=== PATIENT | male | born 1945 | race Caucasian/White ===

== ENCOUNTER 2019-10-19 04:19 | Inpatient (IN) ==
[2019-10-19] MEDS ORDERED: MORPHINE IV ONE (04:43)
[2019-10-19] MEDS ORDERED: FLOMAX PO ONE (04:43)
[2019-10-19] MEDS ORDERED: NS 1,000 ML IV ONE (04:43)
[2019-10-19] MEDS ORDERED: ZOFRAN IV ONE (04:43)
--- NOTE | 2019-10-19 05:06 | PROVIDER DOCUMENTATION ---
HPI-Male Problem - General Chief Complaint: Flank Pain Stated Complaint: RIGHT FLANK PAIN Time Seen by Provider: 10/19/19 04:41 Source: patient, family Allergies/Adverse Reactions: Patient Allergies Allergy/AdvReac Type Severity Reaction Status Date / Time No Known Allergies Allergy Verified 02/14/19 11:58 Home Medications: Home Medication List Medication Instructions Recorded Confirmed Last Taken Type Hydrocortisone 20 mg PO QAM 09/15/14 02/23/19 02/22/19 History Hydrocortisone 10 mg PO QPM 04/12/15 02/23/19 02/22/19 History Levothyroxine [Synthroid] 50 microgm PO DAILY 04/12/15 02/23/19 02/22/19 History Acalabrutinib [Calquence] 100 mg PO BID 01/26/19 02/23/19 02/22/19 History Atorvastatin Calcium [Lipitor] 80 mg PO DAILY 01/26/19 02/23/19 02/22/19 History Calcium Citrate [Calcitrate] 1 dose PO BID 01/26/19 02/23/19 02/22/19 History Dicyclomine [Bentyl] 10 mg PO TID 01/26/19 02/23/19 02/22/19 History Diphenoxylate/Atropine [Lomotil] 2.5 mg PO PRN PRN 01/26/19 02/23/19 02/22/19 History Dutasteride/Tamsulosin HCl [[place] 1 dose PO DAILY 01/26/19 02/23/19 02/22/19 History 0.5-0.4 mg Capsule] Fludrocortisone [Florinef] 0.1 mg PO DAILY 01/26/19 02/23/19 02/22/19 History Levetiracetam [Keppra] 250 mg PO BID 01/26/19 02/23/19 02/23/19 05:00 History Potassium Chloride 20 meq PO TID 01/26/19 02/23/19 02/22/19 History Ranitidine HCl [Zantac] 150 mg PO BID PRN 01/26/19 02/23/19 02/22/19 History Valacyclovir HCl [Valtrex] 500 mg PO DAILY 01/26/19 02/23/19 02/22/19 History Amoxicillin 875 mg PO BID 05/02/23/19 02/22/19 History Apixaban [Eliquis] 5 mg PO BID #0 02/23/19 02/23/19 02/20/19 Rx - History of Present Illness-Male Nature of Presenting Problem: Sudden onset of right flank pain with nausea for 2 hours, awoke him from sleep. No history of prior kidney stones, but he has had renal cyst in the past. Notes some increased urinary frequency and a little pain on urination this morning. No hematuria, despite being on Eliquis. Patient also has history of mantle cell lymphoma on targeted daily oral chemotherapy and weekly IV IgG inf[facility] [place] Dr. Garza is his PCP. States he knows his renal cyst is about 15cm. Location of Complaint: reports: right flank Radiation: reports: other (right low back) Quality of Pain: reports: sharp, stabbing Severity in ED: reports: severe Onset/Duration: reports: abrupt, 1-3 hours ago Timing: reports: still present, constant, changing over time Context/Activities at Onset: reports: sleep Urinary Symptoms: reports: dysuria, frequency, urgency Last urinated? (time): 04:30 Sexual intercourse history: reports: Greater Than 2 Months Ago, Single Partner Associated Symptoms: reports: none Associated Symptoms: reports: back/neck pain, diaphoresis, nausea, vomiting Similar Symptoms Previously?: No Recently seen or treated by another doctor?: No Review of Systems - Adult - REVIEW OF SYSTEMS - ADULT Constitutional: reports: no symptoms reported Eyes: reports: no symptoms reported Ears, Nose, Mouth & Throat: reports: no symptoms reported Cardiovascular: reports: no symptoms reported Respiratory: reports: no symptoms reported Gastrointestinal: reports: see HPI, abdominal pain, nausea, vomiting. denies: hematemesis, constipation, poor appetite Genitourinary: reports: see HPI, dysuria, frequency, urgency. denies: frequent UTI's, hematuria, hesitency Musculoskeletal: reports: see HPI, back pain. denies: bone pain, frequent leg cramps, joint swelling, muscle weakness, neck pain Integumentary: reports: no symptoms reported Neurological: reports: no symptoms reported Psychiatric: reports: no symptoms reported Endocrine: reports: no symptoms reported Hematologic/Lymphatic: reports: no symptoms reported Allergic/Immunologic: reports: no symptoms reported All Other Systems: Reviewed and Negative Past History - Adult - PAST MEDICAL HISTORY-ADULT Review of Records: reports: Old Records Reviewed, Nursing Assessment Review, Medications Reviewed, Social history reviewed & non-contributory. Major Childhood Illnesses: reports: denies history Cardiovascular: reports: blood clots (PE) Respiratory: reports: lung disease, pneumonia Gastrointestinal: reports: GERD Obstetrical/Gynecological: reports: denies history Genitourinary: reports: denies history Musculoskeletal: reports: denies history Neurological: reports: Seizures/Epilepsy Psychiatric: reports: denies history Endocrine/Immune: reports: other (Mclennan's, lymphoma) Other Conditions: reports: other cancer (lymphoma) - PRIOR SURGERIES/PROCEDURES Surgical/Procedure History: reports: recent surgery (colonoscopy) - IMMUNIZATION STATUS Childhood Immunizations: UTD Flu Vaccine: UTD - FAMILY HISTORY Family History: reviewed, not pertinent - SOCIAL HISTORY Smoking: non-smoker Substance Use: none/never Alcohol Use Frequency: rarely Living Situation: family Physical Exam-General - PHYSICAL EXAM-ADULT Initial Vital Signs Reviewed: Yes (VSSAF, tachypneic, otherwise normal) - CONSTITUTIONAL General Appearance: alert, moderate distress (in pain, wretching) - EYES Eyes: PERRL/EOMI, pink conjunctivae - HEAD, EARS, NOSE, MOUTH & THROAT HENMT: normocephalic/atraumatic, moist mucous membranes, normal ENT inspection, pharynx normal - NECK Neck: non-tender, full range of motion, supple, normal inspection. negative: meningismus - RESPIRATORY Respiratory: chest non-tender, lungs clear, normal breath sounds, no pleuratic chest pain, no respiratory distress, no accessory muscle use, increased rate, other (there is a port in his left upper chest) - CARDIOVASCULAR Cardiovascular: normal peripheral pulses, regular rate, rhythm, no edema, no gallop, no JVD, no murmur - GASTROINTESTINAL (ABDOMEN) Abdominal Exam: soft, no organomegaly, guarding, tenderness (right flank). negative: rebound, McBurney's point tenderness - LYMPHATIC Lymphatic: no adenopathy - MUSCULOSKELETAL Back Exam: no vertebral tenderness, CVA tenderness (right side, severe), decreased range of motion Extremity: normal range of motion, non-tender, normal gait, no pedal edema, normal capillary refill - SKIN Integumentary: normal color, normal turgor, warm/dry - NEUROLOGIC Neurologic: brewery pumper II-XII nml as tested, grossly normal, no motor/sensory deficits - PSYCHIATRIC Psych/Mental Status: normal mood/affect, normal thought content, normal thought process, oriented x 3 Progress - PLAN OF CARE/RESULTS Progress/Plan/Lab Results: Vital Signs - 8 hr 10/19/19 04:35 Temperature 98.1 F Pulse Rate 80 Respiratory Rate 28 H Blood Pressure 135/75 O2 Sat by Pulse Oximetry 96 Laboratory Results - last 24 hr 10/19/19 10/19/19 10/19/19 05:12 05:12 05:12 WBC 10.82 H RBC 4.21 L Hgb 13.6 L Hct 42.1 MCV 100.0 H MCH 32.3 H MCHC 32.3 L RDW Std Deviation 15.5 H Plt Count 266 MPV 10.3 Immature Gran % (Auto) 0.3 Neut % (Auto) 66.8 Lymph % (Auto) 16.1 L [place] % (Auto) 16.1 H Eos % (Auto) 0.6 Baso % (Auto) 0.1 Immature Gran # (Auto) 0.03 Neut # (Auto) 7.23 H Lymph # (Auto) 1.74 [place] # (Auto) 1.74 H Eos # (Auto) 0.07 Baso # (Auto) 0.01 PT INR PTT (Actin FS) Sodium 144 Potassium 4.3 Chloride 112 H Carbon Dioxide 20 L Anion Gap 12 BUN 25 H Creatinine 1.9 H Estimated GFR/1.73 m2 35 BUN/Creatinine Ratio 13 Glucose 115 H Calculated Osmolality 292 Calcium 9.1 Total Bilirubin 0.23 AST 22 ALT 31 Alkaline Phosphatase 107 Total Protein 5.5 L Albumin 3.2 L Globulin 2.3 Albumin/Globulin Ratio 1.4 Lipase 48 Plasma Lactate Cortisol 17.9 Urine Source Urine Color Urine Turbidity Urine pH Ur Specific [place] Urine Protein Ur Glucose (Stick) Ur Ketones (Stick) Urine Blood Urine Nitrite Urine Bilirubin Urobilinogen Dipstick Urine Leukocytes Urine WBC (Auto) Urine RBC (Auto) U Epithel Cells (Auto) Urine Bacteria (Auto) 10/19/19 10/19/19 10/19/19 05:12 06:00 06:25 WBC RBC Hgb Hct MCV MCH MCHC RDW Std Deviation Plt Count MPV Immature Gran % (Auto) Neut % (Auto) Lymph % (Auto) [place] % (Auto) Eos % (Auto) Baso % (Auto) Immature Gran # (Auto) Neut # (Auto) Lymph # (Auto) [place] # (Auto) Eos # (Auto) Baso # (Auto) PT Cancelled 14.8 INR Cancelled 1.14 PTT (Actin FS) Cancelled 48.1 H Sodium Potassium Chloride Carbon Dioxide Anion Gap BUN Creatinine Estimated GFR/1.73 m2 BUN/Creatinine Ratio Glucose Calculated Osmolality Calcium Total Bilirubin AST ALT Alkaline Phosphatase Total Protein Albumin Globulin Albumin/Globulin Ratio Lipase Plasma Lactate Cortisol Urine Source CLEAN CATCH Urine Color YELLOW Urine Turbidity CLEAR Urine pH 5.5 Ur Specific [place] 1.015 Urine Protein TRACE A Ur Glucose (Stick) NEGATIVE Ur Ketones (Stick) NEGATIVE Urine Blood MODERATE A Urine Nitrite NEGATIVE Urine Bilirubin NEGATIVE Urobilinogen Dipstick NORMAL Urine Leukocytes NEGATIVE Urine WBC (Auto) <10 Urine RBC (Auto) 20-40 A U Epithel Cells (Auto) <10 Urine Bacteria (Auto) NEGATIVE 10/19/19 06:43 WBC RBC Hgb Hct MCV MCH MCHC RDW Std Deviation Plt Count MPV Immature Gran % (Auto) Neut % (Auto) Lymph % (Auto) [place] % (Auto) Eos % (Auto) Baso % (Auto) Immature Gran # (Auto) Neut # (Auto) Lymph # (Auto) [place] # (Auto) Eos # (Auto) Baso # (Auto) PT INR PTT (Actin FS) Sodium Potassium Chloride Carbon Dioxide Anion Gap BUN Creatinine Estimated GFR/1.73 m2 BUN/Creatinine Ratio Glucose Calculated Osmolality Calcium Total Bilirubin AST ALT Alkaline Phosphatase Total Protein Albumin Globulin Albumin/Globulin Ratio Lipase Plasma Lactate 1.0 Cortisol Urine Source Urine Color Urine Turbidity Urine pH Ur Specific [place] Urine Protein Ur Glucose (Stick) Ur Ketones (Stick) Urine Blood Urine Nitrite Urine Bilirubin Urobilinogen Dipstick Urine Leukocytes Urine WBC (Auto) Urine RBC (Auto) U Epithel Cells (Auto) Urine Bacteria (Auto) Orders Category Date Time Status CT RENAL STONE SEARCH [CT] Stat Exams 10/19/19 04:47 Completed BLOOD CULTURE [BLDCUL] Stat Lab 10/19/19 07:24 Results CBC WITH ELECTRONIC DIFF [HEME] Stat Lab 10/19/19 05:12 Completed COMPREHENSIVE METABOLIC PANEL [CHEM] Stat Lab 10/19/19 05:12 Completed CORTISOL Stat Lab 10/19/19 05:12 Completed LACTATE, PLASMA [CHEM] Stat Lab 10/19/19 06:43 Completed LIPASE [CHEM] Stat Lab 10/19/19 05:12 Completed PROTIME WITH INR [COAG] Routine Lab 10/19/19 06:00 Completed PTT [COAG] Routine Lab 10/19/19 06:00 Completed URINALYSIS W/POSS RFLX CULT [URINALYSIS] Stat Lab 10/19/19 06:25 Completed 0.9% Sodium Chloride Inj [Ns] 1,000 ml Med 10/19/19 04:43 Discontinued IV 999 mls/hr CefTRIAXONE [Rocephin] 1 gm Med 10/19/19 05:50 Discontinued 0.9% Sodium Chloride Inj [Ns] 50 ml IV NOW Hydrocortisone Sod Succinate [Solu-Cortef] Med 10/19/19 05:11 Discontinued 100 mg IV NOW ONE Hydromorphone [Dilaudid] Med 10/19/19 05:22 Discontinued 0.5 mg IV NOW ONE Hydromorphone [Dilaudid] Med 10/19/19 05:51 Discontinued 0.5 mg IV NOW ONE Hydromorphone [Dilaudid] Med 10/19/19 06:38 Discontinued 0.5 mg IV NOW ONE Morphine Med 10/19/19 04:43 Discontinued 4 mg IV NOW ONE Ondansetron [Zofran] Med 10/19/19 04:43 Discontinued 4 mg IV NOW ONE Tamsulosin [Flomax] Med 10/19/19 04:43 Discontinued 0.4 mg PO NOW ONE Result Diagrams: 10/19/19 05:12 10/19/19 05:12 - REASSESSMENT Reassessment #1 Time Reassessed: 05:28 Status: improving (Minimal relief with IVF and morphine/zofran. Will try dilaudid. Also gave hydrocortisone 100mg stress dose IV d/t Mclennan's and chr onic) - CT/MRI 1 CT Study: Renal Stone Impression: Abnormal, See EMR Report (Signed CT RENAL STONE SEARCH - 10/05 INDICATION: right flank pain COMPARISON: 11/30/2018 FINDINGS: There is severe chronic bronchitis in the lung bases with mucus impaction of several segmental bronchi in the lower lobes bilaterally. There is also some mild adjacent infiltrate. This is overall somewhat improved since the prior exam. Heart size is normal with no pericardial effusion. There is a small obstructing stone in the right proximal ureter measuring about 3 mm. There is mild to moderate right hydronephrosis. There is a larger stone in the lower pole of the right kidney measuring about 8.6 mm. There is a grossly stable, huge right renal cyst laterally. This fills the right side of the abdomen. This measures 20 x 15 cm and deviates the right kidney passed the midline. The left kidney is normal. There is a linear calcium density at the posterior left side of the urinary bladder which is stable from prior. This may represent a calcified nodule within the urinary bladder wall itself. Stable enlarged prostate gland with a nodular projection into the urinary bladder. No bowel obstruction or inflammation. Mild constipation. No adenopathy. Mild diverticulosis of the sigmoid colon. There are moderate degenerative changes of the spine. No acute or suspicious bony lesion. IMPRESSION: 1. Small obstructing stone in the proximal right ureter. Mild to moderate hydroureteronephrosis. Right renal stone. 2. Stable huge right renal cyst that appears benign. 3. Stable chronic bronchitis with significant mucus impaction and bibasilar bronchopneumonia. 4. Several findings are also stable from prior. This exam was performed using automated exposure control, adjustment of mA or kV according to patient size, and/or use of iterative reconstruction technique Electronically signed by John Hodges 10/19/2019 6:34 AM 10/19/19 0634 Interpreting Physician: John Hodges MD Dictated Date/Time: 10/19/1925 cc: Arben Whitlock MD; Rishabh Garza MD) - CONSULTS/PCP/HOSPITALIST Notification #1 *Consult/PCP/Hospitalist*: Dr Lawson Time Discussed: 08:00 Consult Disposition: Will see in ED, Admit - CHANGE OF SHIFT REPORT (ED Provider) 1 Report Given and Care Transferred to:: Dr. Lea Time of Transfer: 07:00 Items Pending: Labs (urinalysis), Pain Control, Physician Consult/Arrival (Dr. Garza consult after 0700) Departure - Departure Date of Disposition Decision: 10/19/19 Time of Disposition Decision: 08:01 DIAGNOSIS: Ureterolithiasis, Renal cyst, Hydronephrosis Disposition: ADMITTED INPATIENT 09 Certified Medical Emergency: Emergent Condition: Fair Referrals and Follow-Ups: Rishabh Garza MD [Primary Care Provider] - - Critical Care Note This patient required my direct & personal management of CC.: No Attestation - Physician/ KIM Attestation Patient care was provided by Advanced Practice Provider:: No The physician spent face to face time with patient:: Yes Advanced Practice Provider documentation review:: Supervising physician onsite and consulted in the evaluation and care of this patient. The physician did have a face to face encounter with the patient.
[2019-10-19] MEDS ORDERED: SOLU-CORTEF IV ONE (05:11)
[2019-10-19] MEDS ORDERED: DILAUDID IV ONE ×5 (05:22→15:31)
[2019-10-19 05:26] LABS: BASO# 0.01 X1000 (0.0-0.2); BASO% 0.1 % (0.0-0.8); EOS# 0.07 X1000 (0.0-0.7); EOS% 0.6 % (0.0-10.0); HEMATOCRIT 42.1 % (42.0-52.0); HEMOGLOBIN 13.6 g/dL (14.0-18.0); IMM GRAN# 0.03 X1000 (0.0-0.04); IMM GRAN% 0.3 % (0.0-0.5); LYMPH# 1.74 X1000 (1.2-3.4); LYMPH% 16.1 % (20.5-51.1); MCH 32.3 PG (27-31); MCHC 32.3 g/dL (33-37); MONO# 1.74 X1000 (0.11-0.59); MONO% 16.1 % (1.7-9.3); MPV 10.3 FL (7.4-10.4); NEUT# 7.23 X1000 (1.4-6.5); NEUT% 66.8 % (42.2-75.2); PLT 266 X1000 (130-400); RBC 4.21 XMIL (4.7-6.1); RDW 15.5 % (11.5-14.5); WBC 10.82 X1000 (4.8-10.8)
[2019-10-19 05:39] LABS: ALB/GLOB RATIO 1.4; ALBUMIN 3.2 g/dL (3.5-5.0); CALCIUM 9.1 mg/dL (8.8-10.2); CREATININE 1.9 mg/dL (0.7-1.2); POTASSIUM 4.3 mmol/L (3.5-5.1); TOTAL BILIRUBIN 0.23 mg/dL (0.20-1.00); TOTAL PROTEIN 5.5 g/dL (6.3-8.3)
[2019-10-19] MEDS ORDERED: ROCEPHIN 1 GM in NS 50 ML IV ONE (05:50)
[2019-10-19 06:18] LABS: INR 1.14; PROTIME 14.8 Seconds (11.0-16.0); PTT 48.1 Seconds (22.3-41.8)
[2019-10-19 06:37] LABS: URINE SOURCE CLEAN CATCH
--- NOTE | 2019-10-19 06:37 | Diag Imaging Result Doc PS360 ---
CT RENAL STONE SEARCH - 10/19/2019 INDICATION: right flank pain COMPARISON: 11/30/2018 FINDINGS: There is severe chronic bronchitis in the lung bases with mucus impaction of several segmental bronchi in the lower lobes bilaterally. There is also some mild adjacent infiltrate. This is overall somewhat improved since the prior exam. Heart size is normal with no pericardial effusion. There is a small obstructing stone in the right proximal ureter measuring about 3 mm. There is mild to moderate right hydronephrosis. There is a larger stone in the lower pole of the right kidney measuring about 8.6 mm. There is a grossly stable, huge right renal cyst laterally. This fills the right side of the abdomen. This measures 20 x 15 cm and deviates the right kidney passed the midline. The left kidney is normal. There is a linear calcium density at the posterior left side of the urinary bladder which is stable from prior. This may represent a calcified nodule within the urinary bladder wall itself. Stable enlarged prostate gland with a nodular projection into the urinary bladder. No bowel obstruction or inflammation. Mild constipation. No adenopathy. Mild diverticulosis of the sigmoid colon. There are moderate degenerative changes of the spine. No acute or suspicious bony lesion. IMPRESSION: 1. Small obstructing stone in the proximal right ureter. Mild to moderate hydroureteronephrosis. Right renal stone. 2. Stable huge right renal cyst that appears benign. 3. Stable chronic bronchitis with significant mucus impaction and bibasilar bronchopneumonia. 4. Several findings are also stable from prior. This exam was performed using automated exposure control, adjustment of mA or kV according to patient size, and/or use of iterative reconstruction technique Electronically signed by John Hodges 10/19/2019 6:34 AM
[2019-10-19 06:41] LABS: BILIRUBIN URINE NEGATIVE (NEGATIVE); BLOOD URINE MODERATE (NEGATIVE); COLOR YELLOW; GLUCOSE URINE NEGATIVE (NEGATIVE); KETONE URINE NEGATIVE (NEGATIVE); LEUKOCYTES URINE NEGATIVE (NEGATIVE); NITRITE URINE NEGATIVE (NEGATIVE); PH URINE 5.5; PROTEIN URINE TRACE mg/dL (NEGATIVE); SP GRAVITY URINE 1.015; TURBIDITY URINE CLEAR (CLEAR); UROBILINOGEN URINE NORMAL (NORMAL)
[2019-10-19 06:42] LABS: UR EPITHELIAL CELLS <10 /HPF (<10); URINE BACTERIA NEGATIVE /HPF; URINE RBC 20-40 /HPF (<10); URINE WBC <10 /HPF (<10)
[2019-10-19] MEDS: DILAUDID IV PRN ×3 (10:44→23:24)
[2019-10-19] MEDS ORDERED: SYNTHROID PO ONE (11:06)
[2019-10-19] MEDS ORDERED: ZITHROMAX PO SCH (11:06)
[2019-10-19] MEDS ORDERED: FLOMAX PO SCH (11:06)
[2019-10-19] MEDS ORDERED: ZOFRAN IV PRN (11:06)
[2019-10-19] MEDS ORDERED: LOMOTIL PO PRN (11:06)
[2019-10-19] MEDS ORDERED: TYLENOL PO PRN (11:06)
[2019-10-19] MEDS ORDERED: AVODART PO SCH (11:06)
[2019-10-19] MEDS: VALTREX PO SCH (11:32)
[2019-10-19] MEDS: DOXYCYCLINE PO SCH (11:32)
[2019-10-19] MEDS: NS 1,000 ML IV SCH (11:33)
[2019-10-19] MEDS: SLOW-MAG PO SCH ×2 (11:33→23:17)
[2019-10-19] MEDS: KEPPRA PO SCH ×2 (11:33→23:17)
[2019-10-19] MEDS: ALBUTEROL NEB INH SCH ×2 (11:37→21:20)
[2019-10-19] MEDS: FLOMAX PO SCH (11:54)
[2019-10-19] MEDS: AVODART PO SCH (12:35)
[2019-10-19] MEDS ORDERED: BENTYL PO SCH (13:00)
[2019-10-19] MEDS ORDERED: PEPCID IV ONE (13:54)
[2019-10-19] MEDS ORDERED: REGLAN IV ONE (13:54)
[2019-10-19] MEDS ORDERED: SODIUM CHLORIDE 0.9% INJ ONE (13:54)
--- NOTE | 2019-10-19 13:58 | HISTORY AND PHYSICAL ---
PRIMARY CARE PHYSICIAN: Dr. Rishabh Garza CHIEF COMPLAINT: Intractable right flank pain. HISTORY OF PRESENT ILLNESS: 74-year-old white male with a very complicated past medical history presents for evaluation of above-mentioned symptoms. Current history of present illness began at approximately 2 a.m. At that time, patient awoke with acute onset right flank pain. Unfortunately, the pain progressed. He was noted to have associated nausea, but no vomiting. Because of the progressive symptoms, patient presented to the emergency department at approximately 4:30 a.m. Full evaluation was pursued. CT scan confirmed a proximal right ureteral stone. Laboratory data was significant for a proximal right ureteral stone with associated mild to moderate hydronephrosis. A large cyst was also identified and noted to be stable. Additionally, laboratory data was significant for a slightly elevated white blood cell count of 10.82 and creatinine increased above baseline at 1.9. While in the emergency department, patient required multiple doses of Dilaudid followed by morphine to adequately control his pain. Because of his difficulty with controlling the pain, patient will be admitted to the hospital for full evaluation and management with urologic consultation. Of note, patient denies fevers, chills, shortness of breath, chest discomfort, dysuria, hematuria, or pyuria. His last bowel movement was described as normal yesterday. PAST MEDICAL HISTORY: 1. History of an abnormal skin examination with multiple actinic keratoses. He is followed by Dr. Yarbrough. 2. Adrenal insufficiency-patient was diagnosed status post chemotherapy for mantle cell lymphoma in 1999. He is maintained on hydrocortisone and fludrocortisone therapy. 3. Rankin esophagus. 4. Benign prostatic hypertrophy. 5. History of a C7 aneurysmal bone cyst. 6. Bronchiectasis. 7. Chronic renal insufficiency with creatinine ranging between 1.3 and 1.9. Last creatinine in the office was 1.4. 8. Diverticulosis. 9. History of seizure disorder diagnosed after craniotomy and resection of a large lymphoma in 2009. 10. Reflux disease. 11. Hypertriglyceridemia. 12. Hearing loss. 13. Hyperlipidemia. 14. Hypogammaglobulinemia. 15. Hypothyroidism. 16. Irritable bowel syndrome. 17. History of an acute traumatic right MCL tear in 2013 treated symptomatically. 18. History of stage IV mantle cell lymphoma diagnosed in 1999. He is status post chemotherapy followed by stem cell transplant in [place]. Recurrence was noted in 2009. He is status post neurosurgical intervention by Dr. Lopez followed by chemotherapy, XRT, and repeat stem- cell transplantation. Associated complications have included seizure disorder, DVT/PTE, and hemolytic anemia. 19. Elevated MCV likely secondary to chemotherapeutic intervention. 20. Tobacco use between ages 17 and 72. 21. Obstructive sleep apnea, presumed diagnosis. 22. Osteoarthritis. 23. Overweight. 24. History of a large renal cyst per CT scan in 2004. CURRENT MEDICATIONS: 1. Albuterol nebulizer twice daily. 2. Atorvastatin 80 mg at bedtime. 3. Azithromycin 250 mg 3 times weekly. 4. Bentyl 10 mg 3 times daily. 5. Calcium plus vitamin D, 2 tablets twice daily. 6. Calquence 100 mg twice daily. 7. Centrum Silver 1 tablet daily. 8. Doxycycline 100 mg daily. 9. Eliquis 5 mg twice daily. 10. Fludrocortisone 1 mg at bedtime. 11. Folic acid 1 mg daily. 12. Hydrocortisone 20 mg in the morning and 10 mg at bedtime. 13. Alma 0.5/0.4 daily. 14. Lasix 20 mg daily. 15. Keppra 250 mg twice daily. 16. Lomotil 1 tablet twice daily as needed. 17. Metamucil daily as needed. 18. Mucinex DM twice daily. 19. Pepcid 20 mg twice daily. 20. Potassium chloride 20 mEq 3 times daily. 21. Slow-Mag magnesium twice daily. 22. Valtrex 500 mg daily. 23. Vitamin B12 monthly. ALLERGIES: The patient states he is allergic to no medications. SOCIAL HISTORY: The patient smoked 1 cigar daily for 15 years followed by 1 pipe per day for 10 years. He stopped in January 2017. He has approximately 4 alcoholic drinks per week. He denies illicit drug use. He is a retired radiologist. He enjoys hunting, fishing, and golfing. He exercises intermittently. FAMILY HISTORY: Patient's father passed at age 64 secondary to complications of CLL. The patient's mother passed at age 95 secondary to complications of "old age." She had a history of osteoarthritis and dementia. REVIEW OF SYSTEMS: A 12 point review of systems was performed. Pertinent positives and negatives are noted in history of present illness. PHYSICAL EXAMINATION: VITAL SIGNS: Temperature 98.1 degrees, heart rate 80, respirations 28, blood pressure is 135/75. GENERAL: Well nourished, well developed, no acute distress. HEENT: Normocephalic, atraumatic. Pupils equal, round, react to light. Extraocular muscles intact. Sclerae anicteric. [place] conjunctivae. Oral and nasopharynx clear without exudate. NECK: Supple. No lymphadenopathy. No thyromegaly. No bruits auscultated. CARDIOVASCULAR: Regular rate and rhythm. No significant murmurs, rubs, or gallops. PULMONARY: Rhonchi and wheezing bilaterally. Adequate air movement. ABDOMEN: Soft, nontender, nondistended. Positive bowel sounds. EXTREMITIES: Moves all extremities well. No significant clubbing, cyanosis, or edema. NEUROLOGIC: Cranial nerves 2-12 grossly intact. Motor and sensory grossly intact. PSYCHOLOGIC: Examination is appropriate. LABORATORY DATA: White blood cell count 10.82, hemoglobin 13.6, hematocrit 42.1, platelet count 266,000. PT 14.8, INR is 1.14, PTT is 48.1, sodium 144, potassium 4.3, chloride 112, bicarbonate 20, BUN 25, creatinine 0.9, glucose 115, calcium 9.1, total bilirubin 0.23, total protein 5.5, albumin 3.2, alkaline phosphatase 107, AST 22, ALT 31, lipase 48, plasma lactate 1.0, cortisol 17.9. Urinalysis reveals moderate blood. CT scan suggested a small obstructing stone in the proximal right ureter. Mild to moderate hydronephrosis was identified. A larger renal stone was identified at 8.6 mm. Stable, huge right renal cyst that appears benign. Stable chronic bronchiectasis with significant mucus impaction and bibasilar bronchopneumonia. ASSESSMENT AND PLAN: A 74-year-old white male with a very complicated past medical history presents for evaluation of right flank pain. The patient was diagnosed with symptomatic ureterolithiasis. While the stone is small at 3 mm, patient is having difficulty with pain management. He has required 4 doses of Dilaudid and a dose of morphine to maintain adequate control. Because of this, as well as his complicated past medical history, patient will be admitted to the hospital for full evaluation and management. 1. Admit to [address] [place] [address]. 2. Symptomatic ureterolithiasis and associated nephrolithiasis-I have discussed case with Dr. Ya. We will start patient on IV hydration. We will strain urine. We will continue Alma therapy. We will continue pain management. Depending on his progress through the day, patient may require surgical intervention in the a.m. We will defer this decision to Dr. Ya. 3. Renal cyst-patient has a very large renal cyst. This appears to be benign. We will remain aware, especially if lithotripsy is to be considered. 4. Adrenal insufficiency-patient was provided hydrocortisone while in the emergency department. We will continue his home medications for now. 5. Bronchiectasis-the patient has longstanding disease. We will continue him on doxycycline and azithromycin as prescribed per Dr. Leyva. Bronchodilators will also be continued. We will encourage aspiration precautions. 6. Acute on chronic kidney disease-patient's baseline creatinine is between 1.3 and 1.9. Recent creatinine on September 19 was 1.4. Creatinine today is 1.9. We will remain aware, especially in the setting of obstructing stone. We will repeat labs in the morning. 7. Reflux disease-we will continue patient on Pepcid therapy. 8. Hyperlipidemia/hypertriglyceridemia-we will continue patient on atorvastatin therapy. We will remain aware. The patient does have an elevated CT coronary calcium score suggesting subclinical coronary artery disease. 9. Hypothyroidism-we will continue patient on replacement. 10. Irritable bowel syndrome-we will continue patient on his home regimen. 11. History of mantle cell lymphoma-patient is followed closely by Dr. Carrion. He is treated with chemotherapeutic intervention. We will remain aware. The patient is immunocompromised at present time. We will follow this closely as well. 12. Fluid, electrolytes, nutrition. We will monitor electrolytes. Normal saline at 75 mL an hour. Cardiac prudent diet, but NPO after midnight. 13. Prophylaxis, patient's Eliquis will be held. We will continue patient on sequential compression devices. cc: Rishabh Garza MD
[2019-10-19] MEDS ORDERED: LR 1,000 ML ONE (15:22)
[2019-10-19] MEDS ORDERED: LR 500 ML IV ONE (15:37)
[2019-10-19] MEDS ORDERED: XYLOCAINE-MPF 2% ONE (16:09)
[2019-10-19] MEDS ORDERED: ROBINUL ONE (16:09)
[2019-10-19] MEDS ORDERED: DIPRIVAN 1% ONE (16:09)
[2019-10-19] MEDS ORDERED: FENTANYL ONE (16:10)
[2019-10-19] MEDS ORDERED: SOLU-CORTEF ONE (16:38)
[2019-10-19] MEDS ORDERED: ZOFRAN ONE (16:49)
[2019-10-19] MEDS ORDERED: EPHEDRINE ONE (16:55)
[2019-10-19] MEDS ORDERED: PHENERGAN ONE (17:09)
[2019-10-19] MEDS ORDERED: NS 1,000 ML ONE (18:17)
[2019-10-19] MEDS: PEPCID PO SCH (20:20)
[2019-10-19] MEDS: NORCO-7.5 PO PRN (20:20)
[2019-10-19] MEDS: MUCINEX DM PO SCH (20:20)
[2019-10-19] MEDS: PATIENT'S OWN MED PO SCH (20:21)
[2019-10-19] MEDS ORDERED: LIPITOR PO SCH (21:00)
[2019-10-19] MEDS ORDERED: FLORINEF PO SCH (21:00)
[2019-10-19] MEDS ORDERED: CORTEF PO SCH (21:00)
--- NOTE | 2019-10-19 23:01 | CONSULTATION ---
DATE OF CONSULTATION: 10/19/2019 CHIEF COMPLAINT: Right flank pain. HISTORY OF PRESENT ILLNESS: Mr. Mcdonald is a 74-year-old with history of Adrenal insufficiency secondary to chemotherapy for mantle cell lymphoma, BPH, Bronchiectasis, Chronic renal insufficiency, Diverticulosis, Seizure disorder, History of bone marrow transplant x2, elevated triglycerides, hyperlipidemia, Hypothyroidism, Irritable bowel syndrome, and history of stage IV mantle cell lymphoma who presents in consultation regarding right flank pain. The patient developed excruciating pain at home 2 a.m. this morning and was brought to the emergency room when pain did not improve. The patient was having occasional nausea with no vomiting. He had a CT scan performed, which showed a proximal right ureteral stone as well as a large right renal cyst, which had been present previously. The patient's white blood cell count was 10.8 with a creatinine elevated at 1.9. The patient received multiple doses of Dilaudid and morphine with minimal improvement in pain. The patient was evaluated due to intractable pain and recommended to proceed with surgical intervention. The patient denies history of kidney stones in the past. Denies any dysuria, hematuria, urgency, or frequency. PAST MEDICAL HISTORY: 1. Salvatore disease. 2. Rankin esophagus. 3. BPH. 4. Bronchiectasis. 5. Chronic renal insufficiency. 6. Diverticulosis. 7. History of seizure disorder. 8. Triglyceridemia. 9. Hyperlipidemia. 10. Hypogammaglobinemia. 11. Hypothyroidism. 12. Irritable bowel. 13. Stage IV mantle cell lymphoma. 14. Obstructive sleep apnea. 15. Tobacco use. 16. Large renal cyst. 17. Osteoarthritis. PAST SURGICAL HISTORY: 1. Meniscus repair. 2. Bone marrow transplant. 3. Craniotomy with resection of lymphoma. 4. Colonoscopy. ALLERGIES: No known drug allergies. HOME MEDICATIONS: 1. Albuterol b.i.d. 2. Atorvastatin 80 mg. 3. Azithromycin 250 mg 3 times weekly. 4. Bentyl 10 mg 3 times daily. 5. Calcium with vitamin D two tablets twice daily. 6. Calquence 100 mg twice daily. 7. Centrum Silver. 8. Doxycycline 100 mg daily. 9. Eliquis 5 mg b.i.d. 10. Fludrocortisone 1 mg at bedtime. 11. Folic acid 1 mg daily. 12. Hydrocortisone 20 mg morning and 10 mg at nighttime. 13. Flomax 0.4 mg. 14. Dutasteride 0.5 mg. 15. Lasix 20 mg daily. 16. Keppra 250 mg b.i.d. 17. Lomotil 1 tablet b.i.d. 18. Metamucil. 19. Mucinex. 20. Pepcid. 21. Potassium chloride 20 mEq 3 times a day. 22. Valtrex. 23. Vitamin B12. SOCIAL HISTORY: Patient is a former smoker who currently uses cigars and 1 pipe daily. He drinks approximately 4 alcoholic beverages a week. He denies illicit drug use. Formerly was radiologist. FAMILY HISTORY: Denies family history of malignancy. REVIEW OF SYSTEMS: A 12-point review of systems performed with all pertinent positives and negatives in HPI. PHYSICAL EXAMINATION: Vital signs: Temperature 98.9 degrees, heart rate 91, blood pressure 154/86. General: Moderate distress, complaining of right flank pain. Alert and oriented x3. Respiratory: Good respiratory effort without audible wheeze or rales. HEENT: Normocephalic, atraumatic. Pupils equal, round, reactive to light. Neck: Trachea midline. Cardiovascular: Regular rate and rhythm. Abdomen: Soft, nondistended. Tenderness to palpation in the right upper quadrant and right flank, suprapubic tenderness. Genitourinary: Deferred until surgical evaluation. Skin: Several actinic keratoses. No obvious rashes. Neurologic: Gross motor and sensory intact. Decreased hearing. Musculoskeletal: Moving all extremities. LABORATORY DATA: White blood cell count 10.8, hemoglobin 13.6, hematocrit 42.1, platelets 266,000. Sodium 144, potassium 4.3, chloride 112, bicarb 20, BUN 25, creatinine 1.9, glucose 115. Urinalysis shows trace protein, moderate blood with 20 to 40 RBCs, negative bacteria. IMAGING: CT scan: Images reviewed, which showed a large right renal cyst measuring approximately 20 x 15 cm in size that distorts the anatomy of the kidney. There was a stone in the proximal right ureter measuring 3 mm, as well as an 8.6 mm lower pole renal stone. Several calcium deposits were seen in the posterior portion of the left bladder. ASSESSMENT AND PLAN: Mr. Mcdonald is a 74-year-old who presented for evaluation of right flank pain. The patient had a CT scan performed in the emergency room which showed a 3 mm proximal ureteral stone as well as a larger stone present in the right kidney. The patient had a large renal cyst distorting the anatomy of the kidney with ureter almost going shelter onto the left side before returning back to the right side. The patient has an enlarged prostate and takes dual therapy for this at home. I talked with him and with the significant pain that he is enduring, I recommended consideration of surgical intervention. The patient has a small stone and has a high likelihood of passing it; however, I think anatomically it may be difficult due to the renal cyst. The patient is on Eliquis. I told him that I could perform the surgery to remove the stone; however, ultimately he may need drainage of the cyst to better improve the anatomy and function of the kidney. Would have to be off his Eliquis to do this. Discussed the risks of ureteroscopic procedure including bleeding, infection, damage to the bladder, urethra, ureter or kidney, inability to perform the procedure, need for secondary procedures, need for postoperative stenting. After thorough discussion, the patient elected to proceed. We will plan to take to the operating room for right ureteroscopy, lithotripsy and stone basket extraction on 10/19/2019. We will keep indwelling stent for several days after his procedure if able to remove the stone. cc: MD Rishabh Bedoya MD MTDD
[2019-10-20] MEDS: BENTYL PO SCH ×3 (03:02→12:18)
[2019-10-20] MEDS: NORCO-7.5 PO PRN ×2 (04:15→10:11)
[2019-10-20] MEDS: NS 1,000 ML IV SCH ×2 (05:37→05:52)
[2019-10-20] MEDS: SYNTHROID PO SCH ×2 (05:53→07:25)
[2019-10-20] MEDS: DILAUDID IV PRN ×2 (06:26→08:17)
[2019-10-20 08:03] LABS: BASO# 0.01 X1000 (0.0-0.2); BASO% 0.1 % (0.0-0.8); EOS# 0.01 X1000 (0.0-0.7); EOS% 0.1 % (0.0-10.0); HEMATOCRIT 39.4 % (42.0-52.0); HEMOGLOBIN 12.7 g/dL (14.0-18.0); IMM GRAN# 0.02 X1000 (0.0-0.04); IMM GRAN% 0.2 % (0.0-0.5); LYMPH# 1.01 X1000 (1.2-3.4); LYMPH% 10.4 % (20.5-51.1); MCH 32.4 PG (27-31); MCHC 32.2 g/dL (33-37); MCV 100.5 FL (81-99); MONO# 1.72 X1000 (0.11-0.59); MONO% 17.7 % (1.7-9.3); MPV 10.7 FL (7.4-10.4); NEUT# 6.96 X1000 (1.4-6.5); NEUT% 71.5 % (42.2-75.2); PLT 243 X1000 (130-400); RBC 3.92 XMIL (4.7-6.1); RDW 15.3 % (11.5-14.5); WBC 9.73 X1000 (4.8-10.8)
[2019-10-20 08:18] LABS: ALB/GLOB RATIO 1.3; CALCIUM 8.4 mg/dL (8.8-10.2); CREATININE 1.8 mg/dL (0.7-1.2); POTASSIUM 3.9 mmol/L (3.5-5.1); TOTAL BILIRUBIN 0.26 mg/dL (0.20-1.00); TOTAL PROTEIN 5.4 g/dL (6.3-8.3)
[2019-10-20 08:22] LABS: INR 1.14; PROTIME 14.8 Seconds (11.0-16.0); PTT 27.6 Seconds (22.3-41.8)
--- NOTE | 2019-10-20 08:32 | Diag Imaging Result Doc PS360 ---
RETROGRADES 2 OR 3 FILMS - 10/19/2019 INDICATION: rt ureteral stone TECHNIQUE: Right sided ureterogram. The exam was performed by the patient's urologist. Total fluoroscopy time was 56 seconds. 45 images were obtained. COMPARISON: CT from 10/19/2019 FINDINGS: The right ureter is severely deviated towards the left side via a huge right renal cyst and displacement of the right kidney has a result of that. There was poor opacification of the right ureter initially, with retrograde filling. There was wire instrumentation. Contrast infusion demonstrated hydronephrosis of the right renal collecting system. A right nephroureteral stent was placed in good position. IMPRESSION: No complication. Electronically signed by John Hodges 10/20/2019 8:29 AM
[2019-10-20] MEDS: ALBUTEROL NEB INH SCH (08:49)
[2019-10-20] MEDS ORDERED: FOLIC ACID PO SCH (09:00)
[2019-10-20] MEDS ORDERED: CENTRUM SILVER PO SCH (09:00)
[2019-10-20] MEDS ORDERED: PERIDEX MT SCH (09:00)
[2019-10-20] MEDS ORDERED: CORTEF PO SCH ×2 (09:00)
[2019-10-20] MEDS: FLOMAX PO SCH (09:39)
[2019-10-20] MEDS: SLOW-MAG PO SCH (09:39)
[2019-10-20] MEDS: MUCINEX DM PO SCH (09:39)
[2019-10-20] MEDS: KEPPRA PO SCH (09:39)
[2019-10-20] MEDS: CALTRATE 600 PO SCH ×2 (09:39→12:17)
[2019-10-20] MEDS: DOXYCYCLINE PO SCH (09:39)
[2019-10-20] MEDS: PEPCID PO SCH (09:40)
[2019-10-20] MEDS: AVODART PO SCH (09:40)
[2019-10-20] MEDS: VALTREX PO SCH (09:40)
[2019-10-20 11:29] VITALS: BP 116/70
[2019-10-20] MEDS: PATIENT'S OWN MED PO SCH (12:17)
--- NOTE | 2019-10-20 12:34 | OPERATIVE NOTE ---
PROCEDURE DATE: 10/19/2019 PREOPERATIVE DIAGNOSES: 1. Right ureteral stone. 2. Right renal stone. 3. Right renal cyst. POSTOPERATIVE DIAGNOSES: 1. Right ureteral stone. 2. Right renal stone. 3. Right renal cyst. PROCEDURE PERFORMED: 1. Cystoscopy. 2. Right retrograde pyelogram. 3. Right ureteroscopy with stone basket extraction 4. Right ureteral stent placement. SURGEON: Christopher Ya MD. ASSISTANTS: None. COMPLICATIONS: None. BLOOD LOSS: 10 mL. DRAINS: A 6 x 26 cm right ureteral stent SPECIMEN: Right ureteral stone ANESTHESIA: LMA. OPERATIVE FINDINGS: The patient had a normal phallus with orthotopic meatus. Bilateral testicles palpated, slightly atrophic. No lesions present. The patient's prostate was approximately 40 g with no obvious nodularity or asymmetry. The patient underwent normal cystoscopy with a normal urethra. No stricture disease or papillary lesions. The patient's prostate was slightly enlarged with obstructing tissue and a small median lobe. Once inside the bladder, the entirety of the bladder was inspected. No diverticulum, cellules, or trabeculations. There were some calcifications seen within the bladder itself. These were drained through the scope, likely previously passed stones that were small. Both ureteral orifices were visualized, slightly lateralized on the right side. I was able to perform a right retrograde pyelogram which outlined a normal distal ureter. However, contrast could not traverse the entire length. I was able to pass 2 wires to the ureteral orifice and advance a flexible scope which took a reverse S-shaped pattern up to the site of the stone. I was able to grasp the stone and remove it. I went into the kidney and was able to inspect the kidney. There was a small amount of sediment in the bottom part of the kidney, likely related to prior stone. I could not visualize any large stones within the kidney itself. The patient underwent uneventful ureteral stent placement on the right side. 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 The patient had a CT scan performed which showed a large right renal cyst measuring over 20 cm, as well as a 3 mm stone in the proximal right ureter, as well as a right renal stone. The patient had significant pain in the emergency room with some nausea. The patient had a slightly elevated creatinine from baseline. Due to persistent pain, the patient elected to proceed with surgical intervention. Risks, benefits, and alternatives to the procedure were discussed with patient including bleeding, infection, damage to surrounding structures, need for secondary procedures, as well as inability to remove the stone. After thorough discussion, he elected to proceed. DESCRIPTION OF PROCEDURE: After informed consent was obtained, the patient was brought to the operating room and placed on the operating table in the supine position. The patient received preoperative antibiotics and underwent LMA placement. He was then placed into a dorsal lithotomy position, was prepped and draped in the usual sterile fashion. A preoperative time-out was performed with all parties in agreement, including anesthesia, surgical, and nursing staff. At which point I inserted a 21-Danish cystourethroscope through the urethra, showing normal caliber urethra, no stricture disease or papillary lesions. The patient's prostate was slightly enlarged and had some obstructing tissue and a small median lobe. Once in the bladder, the entirety of the bladder was inspected. There was a small stone seen at the base of the bladder that we removed. The entirety of the bladder was inspected. No diverticulum or cellules. Some small trabeculations were seen within the bladder itself. Both ureteral orifices were visualized with efflux of clear yellow urine, at which point an open-ended catheter was passed through the scope, flushed of all bubbles, and the right ureteral orifice cannulized and retrograde was attempted. The patient had injection of contrast into the distal ureter but due to the abnormal trajectory of the ureter, it did not go past the mid ureter due to the reverse S-shaped appearance related to the renal cyst. Ultimately, passed a ZIPwire up into the collecting system itself and then that was left in place. The cystourethroscope was removed and then a second passage of cystourethroscope into the bladder and I passed a PTFE wire up to the kidney. The PTFE wire was left in place. The bladder was decompressed and a flexible ureteroscope was advanced over the PTFE wire and into the distal ureter at which point the ureteroscope was then slowly advanced up into the proximal ureter where the stone was encountered. Using a [place] basket, this was grasped and able to be completely extracted and sent for analysis. I then had re- passage of the ureteroscope over a PTFE wire and the rest of the collecting system was inspected. A large amount of small stones were seen in the lower pole of the kidney. No large stones were seen. The stones present there were quite small. These were irrigated out. They were too small to be grasped with my basket. I preformed a retrograde pyelogram through our scope and each calyx was evaluated and no significant stones were seen. However, the patient has been on Eliquis and there was a small amount of red urine in the collecting system which made it difficult to completely evaluate for stones. However, no large debris was visualized at which point the ureteroscope was slowly withdrawn but no significant stone was seen in the ureter itself and a small amount of edema seen at the previously impacted stone site. The ZIPwire was left in place and then back-loaded through the cystourethroscope. A 6 x 26 cm right ureteral stent was advanced over the wire with good curl within the kidney endoscopically, visualized in the bladder. Good drainage was seen through and around the stent. The patient's bladder was cycled multiple times and drained of all irrigant. The patient was then awoken and was taken to recovery in stable condition. DISPOSITION: The patient will be admitted to the hospital overnight to Dr. Sanchez's service. cc: MD Rishabh Bedoya MD [facility]
--- NOTE | 2019-10-20 14:49 | PROGRESS NOTE ---
DATE: 10/20/2019 SUBJECTIVE: Postoperative day 1 from cystoscopy, right ureteroscopy, lithotripsy and stone basket extraction for a ureteral stone with placement of right ureteral stent. The patient overall is doing well this morning. Patient had minimal ability urinate after his procedure yesterday with small volumes and was very uncomfortable so a catheter was inserted. The patient has had clear yellow urine through the catheter since then. He has occasional bladder spasms, but they seem to be manageable. He denies any fevers or chills. Vital signs have all been stable. OBJECTIVE: Vital Signs: Temperature 98.1 degrees, heart rate 77, blood pressure 116/70, oxygen saturation 94% on room air. General: No acute distress. Resting comfortably in bed. Alert and oriented x3. Respiratory: Good respiratory effort without audible wheezing or rales. Abdomen: Soft, nontender, nondistended. Genitourinary: No suprapubic tenderness. No CVA tenderness. Urethral catheter in place draining clear yellow urine. Strings are exiting the urethra. Normal meatus and bilateral testicles palpably without mass. Musculoskeletal: Moving all extremities. LABORATORY DATA: White blood cell count 9.7, hemoglobin 12.7, hematocrit 39.4, platelets 243,000. Sodium 139, potassium 3.9, chloride 106, BUN 22, creatinine 1.8 and with a glucose of120. Urine culture has showing no growth to date. ASSESSMENT AND PLAN: Mr. Mcdonald is a 74-year-old with multiple comorbidities who was taken to the operating room yesterday due to an obstructing right ureteral stone which was complicated by the fact that he has a large right renal cyst. The patient was taken to the operating room and underwent flexible ureteroscopy and removal of the stone as well as a renal endoscopy with several smaller stones seen within the kidney itself. These were removed. The patient is having some pain today, but much better than yesterday. Remains afebrile. All his labs are within normal limits. The patient was unable to void after the procedure yesterday and had indwelling catheter inserted. In talking with him, I recommended doubling his dose of Flomax to 0.8 mg daily. We will give him a new prescription. I recommend keeping catheter in overnight and removing it tomorrow in the office. If the patient is able to void, then he will go without a catheter. If unable to void, then he would have to have catheter reinserted. The patient has an indwelling stent in which can be removed on Thursday. The patient has a large right renal cyst which has been present for a long time now. However, I think it is causing distortion of his renal anatomy and leading to stone formation. The patient's pH of his urine is low and patient has radiolucent stones. The patient may have some uric acid stones that are forming. I talked with Dr. Garza today regarding changing his potassium dose. We will wait until stone analysis comes back. If he is having uric acid stones, may have to consider a trial of potassium citrate rather than potassium chloride. We will continue monitor from a urologic standpoint. Please call with any questions or concerns. cc: MD Rishabh Bedoya MD MTDD
--- NOTE | 2019-10-21 11:53 | DISCHARGE SUMMARY ---
ADMISSION DATE: 10/19/2019 DISCHARGE DATE: 10/20/2019 ADMISSION DIAGNOSIS: Intractable right flank pain. DISCHARGE DIAGNOSES: 1. Symptomatic ureterolithiasis with associated nephrolithiasis, improved. 2. Renal cyst, stable. 3. Adrenal insufficiency, present on arrival. 4. Bronchiectasis, present on arrival. 5. Acute on chronic kidney disease, improving. 6. Reflux disease, present on arrival. 7. Hyperlipidemia/hypertriglyceridemia, present on arrival. 8. Hypothyroidism, present on arrival. 9. Irritable bowel syndrome, present on arrival. 10. History of mantle cell lymphoma, present on arrival. CONSULTATIONS: Dr. Ya with Urology was consulted for further evaluation and management of symptomatic ureterolithiasis with associated hydronephrosis. PROCEDURES: CT scan of the abdomen and pelvis renal stone search was performed on 10/19/2019 which revealed a small obstructing stone in the proximal right ureter. Mild to moderate hydronephrosis. Right renal stone. Stable huge right renal cyst that appears benign. Stable chronic bronchitis with significant mucus impaction in bibasilar bronchopneumonia. Cystoscopy, right retrograde pyelogram, right ureteroscopy, stone basket extraction, and right ureteral stent was performed on 10/19/[address] Ya. HISTORY AND PHYSICAL EXAMINATION: See admit note. PHYSICAL EXAMINATION PRIOR TO DISCHARGE: Vital Signs: Temperature 98.1 degrees, heart rate 77, respirations 18, blood pressure is 116/70. General: Well nourished, well developed, no acute distress. Cardiovascular: Regular rate and rhythm. No significant murmurs, rubs, or gallops. Pulmonary: Crackles at bilateral bases, unchanged from previous. Abdomen: Soft, nontender, nondistended. Positive bowel sounds. Extremities: Moves all extremities well. No significant clubbing, cyanosis, or edema. Dermatologic: Evaluation reveals no evidence of rash. LABORATORY DATA: Prior to discharge: White blood cell count 9.73, hemoglobin 12.7, hematocrit 39.4, platelet count 243,000. PT 14.8, INR is 1.14, PTT is 27.6, sodium 139, potassium 3.9, chloride 106, bicarbonate 23, BUN 22, creatinine 1.8, glucose 120, calcium 8.4, total bilirubin 0.26, total protein 5.4, albumin 3.0. Alkaline phosphatase 98, AST 18, ALT 23. HOSPITAL COURSE: Patient was admitted as per history and physical examination. Hospital course per condition is as follows. 1. Symptomatic ureterolithiasis with associated nephrolithiasis-upon admission, patient was noted to have considerable pain. Despite multiple doses of Dilaudid, pain persisted. For this reason, a more aggressive approach was deemed warranted. Dr. Ya was consulted. The patient was taken for ureteroscopy and basket stone removal with subsequent stent placement on the day of admission. Patient tolerated this quite well. Postoperative course was complicated by urinary retention. A Simpson catheter was placed. At time of discharge, patient denied significant symptoms. He will be discharged with his Simpson catheter intact. He will follow up with Dr. Ya's office tomorrow for Simpson catheter removal. On Thursday, patient has been instructed to remove his stent. For now, we will increase his Flomax to 2 tablets at bedtime. Followup will be arranged with Dr. Ya. 2. Very large renal cyst-while this appears to be benign, concern was raised this may be contributing to precipitating urinary calculi. I discussed this in detail with Dr. Ya. He suggested we should consider draining this cyst in the near future. The patient will follow up with Dr. Ya for further discussion in 2 weeks. 3. Acute on chronic kidney disease-patient's baseline creatinine is between 1.3 and 1.9. Creatinine in September was 1.4. Upon admission, creatinine was 1.9. This had trended down to 1.8 at discharge. We will follow this as an outpatient as well. 4. Adrenal insufficiency-patient was given stress dose steroids, upon admission. His home dose hydrocortisone and fludrocortisone were continued thereafter. The patient's blood pressure is stable at time of discharge. 5. Bronchiectasis-the patient has longstanding disease. He currently is being treated with doxycycline daily and azithromycin [address] Leyva. We will continue him on bronchodilators per Dr. Leyva's discretion. 6. Reflux disease-patient was continued on Pepcid therapy while hospitalized. Symptoms remain controlled. 7. Hyperlipidemia/hypertriglyceridemia-patient was continued on atorvastatin therapy while hospitalized. 8. Hypothyroidism-patient was continued on replacement while hospitalized. 9. Irritable bowel syndrome-patient was continued on his home regimen. Symptoms remained controlled. 10. History of mantle cell lymphoma-patient is followed closely by Dr. Carrion as an outpatient. He was continued on Calquence while hospitalized. DISCHARGE CONDITION: Good. DISPOSITION: Discharge to home. MEDICATIONS: 1. Avodart 0.5 mg daily. 2. Doxycycline 100 mg daily. 3. Florinef 0.1 mg at bedtime. 4. Atorvastatin 80 mg at bedtime. 5. Lomotil 1 tablet twice daily as needed. 6. Synthroid 88 mcg daily. 7. Azithromycin 250 mg daily on Thursday, Thursday, and Thursday. 8. Tamsulosin 0.4 mg 2 tablets at bedtime. 9. Macrobid 100 mg twice daily. 10. Albuterol nebulizer every 12 hours. 11. Centrum Silver daily. 12. Tylenol 650 mg every 6 hours as needed. 13. [place] 7.5/325 every 6 hours as needed. 14. Hydrocortisone 20 mg in the morning and 10 mg in the evening. 15. Dicyclomine 10 mg 3 times daily. 16. Keppra 250 mg twice daily. 17. Potassium chloride 20 mEq. Three times daily. 18. Calquence 100 mg twice daily. 19. Valtrex 500 mg daily. 20. Eliquis 5 mg twice daily. 21. Famotidine 40 mg twice daily. 22. Lasix 20 mg daily. 23. Mucinex DM twice daily. 24. Slow-Mag twice daily. 25. Calcium plus vitamin D 2 tablets twice daily. FOLLOWUP: The patient is to follow up with me in approximately 1 to 2 weeks. Patient is to have his catheter removed tomorrow by Dr. Ya. He is to remove his stent on Thursday. He is to follow up with Dr. Ya again in approximately 2 weeks. cc: Rishabh Garza MD
== END 2019-10-20 12:18 | disposition home or self-care (01) | DRG 660 ==
LOC: ED 04:19 → EDIPHOLD 11:11 → 4N 18:45
PROVIDERS: ADMIT Internal Medicine; ATTEND Internal Medicine

== ENCOUNTER 2019-10-24 09:04 | Observation (INO) ==
[2019-10-24] MEDS ORDERED: MORPHINE IV ONE (09:37)
[2019-10-24] MEDS ORDERED: NS 1,000 ML IV ONE (09:39)
[2019-10-24] MEDS ORDERED: FENTANYL IV ONE (09:41)
--- NOTE | 2019-10-24 10:10 | PROVIDER DOCUMENTATION ---
HPI-Abdominal Pain/GI Problem - General Chief Complaint: Flank Pain Stated Complaint: EXTREME PAIN Time Seen by Provider: 10/24/19 09:30 Source: patient, family () Allergies/Adverse Reactions: Patient Allergies Allergy/AdvReac Type Severity Reaction Status Date / Time No Known Allergies Allergy Verified 10/24/19 11:19 Home Medications: Home Medication List Medication Instructions Recorded Confirmed Last Taken Type Hydrocortisone 10 mg PO QPM 04/12/15 10/24/19 02/22/19 History Acalabrutinib [Calquence] 100 mg PO BID 01/26/19 10/24/19 02/22/19 History Dicyclomine [Bentyl] 10 mg PO 0900,1500,2100 01/26/19 10/24/19 02/22/19 History Levetiracetam [Keppra] 250 mg PO BID 01/26/19 10/24/19 02/23/19 05:00 History Potassium Chloride 20 meq PO 0900,1500,2100 01/26/19 10/24/19 02/22/19 History Valacyclovir HCl [Valtrex] 500 mg PO DAILY 01/26/19 10/24/19 02/22/19 History Apixaban [Eliquis] 5 mg PO BID #0 02/23/19 10/24/19 02/20/19 Rx Calcium Citrate/Vitamin D3 2 tab PO BID 10/19/19 10/24/19 Unknown History [Calcium Citrate - Vit D3 Tab] Famotidine [Pepcid] 40 mg PO BID 10/19/19 10/24/19 Unknown History Furosemide 20 mg PO DAILY 10/19/19 10/24/19 Unknown History Guaifenesin/Dm E.r. [Mucinex Dm] 1 tab PO BID 10/19/19 10/24/19 Unknown History Magnesium Cl D.r. [Slow-Mag] 1 tab PO BID 10/19/19 10/24/19 Unknown History ATORVAstatin [Lipitor] 80 mg PO QHS tab 10/20/19 10/24/19 Unknown Rx Acetaminophen [Tylenol] 650 mg PO Q6H PRN PRN tab 10/20/19 10/24/19 Unknown Rx Albuterol [Albuterol Neb] 2.5 mg INH RTQ12H neb 10/20/19 10/24/19 Unknown Rx Azithromycin [Zithromax] 250 mg PO MoWeFr tab 10/20/19 10/24/19 Unknown Rx Diphenoxylate/Atropine [Lomotil] 1 ea PO BID PRN PRN tab 10/20/19 10/24/19 Unknown Rx Doxycycline 100 mg PO DAILY tab 10/20/19 10/24/19 Unknown Rx Dutasteride [Avodart] 0.5 mg PO DAILY cap 10/20/19 10/24/19 Unknown Rx Fludrocortisone [Florinef] 0.1 mg PO QHS tab 10/20/19 10/24/19 Unknown Rx Hydrocodone/APAP 7.5 mg/325 mg 1 ea PO Q6H PRN PRN #15 tab 10/20/19 10/24/19 Unknown Rx [[place]-7.5] Levothyroxine [Synthroid] 88 microgm PO DAILY@0700 tab 10/20/19 10/24/19 Unk nown Rx Multivitamins/Minerals [Centrum 1 ea PO DAILY tab 10/20/19 10/24/19 Unknown Rx Silver] Nitrofurantoin [place]/Macrocryst 100 mg PO BID #6 cap 10/20/19 10/24/19 Unknown Rx [Macrobid] Tamsulosin [Flomax] 2 tab PO QHS #60 cap 10/20/19 10/24/19 Unknown Rx - History of Present Illness-ABD Abdominal Pain Onset Location: reports: suprapubic Pain Radiation: reports: no radiation Quality of Pain: reports: none Severity in ED: reports: moderate Onset/Duration: reports: 2 days ago Timing: reports: still present Activities at Onset: reports: none Exposure to sick contacts?: No Modifying Factors: improves with: analgesics. worse with: lying down Associated Symptoms: reports: genitourinary problems. denies: diarrhea, nausea, vomiting Last BM: 2 days ago Dark Stools Present?: reports: none noticed Rectal Bleeding: reports: none Rectal Pain: reports: none Emesis Description: reports: none Bruising or Bleeding Gums?: No Similar Symptoms Previously?: No Recently seen or treated by another doctor?: Yes (s/p ureteral stone treatment and chapman catheter removal last week) Review of Systems - Adult - REVIEW OF SYSTEMS - ADULT Constitutional: reports: no symptoms reported. denies: fever Eyes: reports: no symptoms reported Ears, Nose, Mouth & Throat: reports: no symptoms reported Cardiovascular: reports: no symptoms reported Respiratory: reports: no symptoms reported Gastrointestinal: reports: abdominal pain (lower abdominal). denies: diarrhea, nausea, vomiting Genitourinary: reports: dysuria, hematuria Musculoskeletal: reports: no symptoms reported Integumentary: reports: no symptoms reported Neurological: reports: no symptoms reported Psychiatric: reports: no symptoms reported Endocrine: reports: no symptoms reported Hematologic/Lymphatic: reports: no symptoms reported Allergic/Immunologic: reports: no symptoms reported All Other Systems: Reviewed and Negative Past History - Adult - PAST MEDICAL HISTORY-ADULT Review of Records: reports: Old Records Reviewed Major Childhood Illnesses: reports: denies history Cardiovascular: reports: blood clots (PE) Respiratory: reports: lung disease, pneumonia Gastrointestinal: reports: GERD Obstetrical/Gynecological: reports: denies history Genitourinary: reports: kidney disease, kidney stones Musculoskeletal: reports: denies history Neurological: reports: Seizures/Epilepsy Psychiatric: reports: denies history Endocrine/Immune: reports: other ([place]'s, lymphoma) Other Conditions: reports: other cancer (lymphoma) - PRIOR SURGERIES/PROCEDURES Surgical/Procedure History: reports: recent surgery (colonoscopy and ureteral stone surgery) - IMMUNIZATION STATUS Childhood Immunizations: UTD Flu Vaccine: UTD - FAMILY HISTORY Family History: reviewed, not pertinent - SOCIAL HISTORY Smoking: denies Substance Use: none/never Alcohol Use Frequency: never Physical Exam-General - PHYSICAL EXAM-ADULT Initial Vital Signs Reviewed: Yes (tachycardic) - CONSTITUTIONAL General Appearance: alert - EYES Eyes: PERRL/EOMI - HEAD, EARS, NOSE, MOUTH & THROAT HENMT: normocephalic/atraumatic, moist mucous membranes - NECK Neck: non-tender - RESPIRATORY Respiratory: chest non-tender, lungs clear, normal breath sounds - CARDIOVASCULAR Cardiovascular: normal peripheral pulses, no edema, tachycardia (sinus) - GASTROINTESTINAL (ABDOMEN) Abdominal Exam: tenderness (suprapubic) - MUSCULOSKELETAL Back Exam: no CVA tenderness - SKIN Integumentary: normal color - NEUROLOGIC Neurologic: grossly normal - PSYCHIATRIC Psych/Mental Status: normal mood/affect Progress - PLAN OF CARE/RESULTS Progress/Plan/Lab Results: Vital Signs - 8 hr 10/24/19 09:41 Temperature 98.3 F Pulse Rate 108 H Respiratory Rate 26 H Blood Pressure 75/43 O2 Sat by Pulse Oximetry 97 Orders Category Date Time Status BLOOD CULTURE [BLDCUL] Stat Lab 10/24/19 09:39 Ordered CBC WITH ELECTRONIC DIFF [HEME] Stat Lab 10/24/19 09:38 Uncollected CMP [COMPREHENSIVE METABOLIC PANEL] [CHEM] Stat Lab 10/24/19 09:38 Uncollected LACTATE, PLASMA [CHEM] Stat Lab 10/24/19 09:39 Uncollected LIPASE [CHEM] Stat Lab 10/24/19 09:39 Uncollected URINALYSIS W/POSS RFLX CULT [URINALYSIS] Stat Lab 10/24/19 09:38 Uncollected 0.9% Sodium Chloride Inj [Ns] 1,000 ml Med 10/24/19 09:39 Active IV 999 mls/hr Fentanyl Med 10/24/19 09:41 Discontinued 50 microgm IV NOW ONE Morphine Med 10/24/19 09:37 Discontinued 4 mg IV NOW ONE Initially reported as hypotensive but now lying flat has SBP 110 mmHg and receiving normal saline IV fluid 1 L bolus. Given fentanyl for pain control. Given dilaudid for further pain control and pain still not well controlled. Added levsin and bentyl without additional relief. Also given rocephin for a possible UTI with bladder wall thickening seen on CT imaging. I spoke to Dr. Nicholas urology in place of outpatient urologist Dr. Ya about recent instrumentation and possible cause for intractable pain. He stated that the patient's pain is likely due to constipation without concerning findings on the CT scan. He stated the patient may have a UTI and was fine with Rocephin being given. Spoke to PCP Dr. Rishabh Garza and the patient will be admitted for constipation with intractable pain. He recommended a Fleet enema and dilaudid IV 0.5 mg q2hr prn pain. The rocephin will be continued. Noted incidental CT findings. Patient and at bedside aware and agree with plan of care. Result Diagrams: 10/24/19 10:13 10/24/19 10:13 - EKG 1 Time of EKG reading by physician:: 09:36 EKG Read and Signed by:: Jamie Newsome EKG Interpretation (*Must complete 3 of following elements*): Abnormal Rate: 145 Rhythm: normsal sinus [place]: normal QRS: RBB [place] Interval: normal ST Wave: normal - CT/MRI 1 CT Study: Abdomen Impression: Abnormal, See EMR Report (EXAM: CT ABDOMEN/PELVIS W/O CONTRAST INDICATION: abd pain, acute kidney injury TECHNIQUE: This exam was performed using automated exposure control, adjustment of mA or kV according to patient size, and/or use of iterative reconstruction technique. COMPARISON: 10/19/2019 FINDINGS: Mild airspace consolidations at both lung bases are approximately stable. There has been improvement of the bronchial mucous impaction at the right lung base. The gallbladder, liver, spleen, pancreas, and adrenal glands are essentially unremarkable. There is a stable giant right renal cyst with a few small calcifications at its periphery. The right ureteral stone seen on the previous study is not identified and appears to have been extracted during the interval. However, there is still mild right hydroureteronephrosis that is essentially unchanged. Nonobstructing intrarenal stones are approximately stable as compared to the previous study. There is a small droplet of gas in one of the right renal calyces that is assumed to be from recent instrumentation. The urinary bladder is partially distended. Urinary bladder wall is mildly thickened but stable. This is probably trabecular hypertrophy. Correlate clinically to exclude a component of cystitis. The prostate is mildly prominent. There is a large amount stool in colon and rectum suggesting constipation. There is mild uncomplicated diverticulosis coli. There are a few mildly prominent loops of small bowel with air-fluid levels that are nonspecific but are probably related to the constipation. There is no evidence of small bowel obstruction. The remainder of the GI tract is essentially unremarkable. IMPRESSION: 1.Bibasilar mild infiltrates and bronchiectasis that is similar to the previous study. However, mucous plugging at the right lung base has improved. 2.Bilateral nephrolithiasis with interval extraction of an obstructing stone in the right ureter. However, there is persistent mild right hydroureteronephrosis. 3.Mild stable urinary bladder wall thickening that is probably due to trabecular hypertrophy. Correlate clinically to exclude a component of cystitis. 4.Large amount stool in the colon and rectum suggesting constipation. 5.Stable giant right renal cyst. 6.A few mildly prominent loops of small bowel with air-fluid levels that are nonspecific but probably related to the constipation. There is nothing that would suggest small bowel obstruction. 7.Other incidental/nonacute findings detailed above. Electronically signed by Sebastian Ballesteros 10/24/2019 11:57 AM) Departure - Departure Date of Disposition Decision: 10/24/19 Time of Disposition Decision: 14:07 DIAGNOSIS: Constipation, Intractable lower abdominal pain, Renal cyst, right, Bilateral nephrolithiasis, Acute cystitis with hematuria Disposition: ADMITTED INPATIENT 09 Certified Medical Emergency: Emergent Condition: Fair Referrals and Follow-Ups: Rishabh Garza MD [Primary Care Provider] - - Critical Care Note This patient required my direct & personal management of CC.: No Attestation - Physician/ KIM Attestation Patient care was provided by Advanced Practice Provider:: No The physician spent face to face time with patient:: Yes Advanced Practice Provider documentation review:: Supervising physician onsite and consulted in the evaluation and care of this patient. The physician did have a face to face encounter with the patient.
[2019-10-24 10:30] LABS: BASO# 0.02 X1000 (0.0-0.2); BASO% 0.2 % (0.0-0.8); EOS# 0.09 X1000 (0.0-0.7); EOS% 0.8 % (0.0-10.0); HEMATOCRIT 38.9 % (42.0-52.0); HEMOGLOBIN 12.6 g/dL (14.0-18.0); LYMPH# 1.15 X1000 (1.2-3.4); LYMPH% 9.6 % (20.5-51.1); MCH 32.9 PG (27-31); MCHC 32.4 g/dL (33-37); MCV 101.6 FL (81-99); MONO# 2.02 X1000 (0.11-0.59); MONO% 16.9 % (1.7-9.3); MPV 10.4 FL (7.4-10.4); NEUT# 8.69 X1000 (1.4-6.5); NEUT% 72.5 % (42.2-75.2); PLT 246 X1000 (130-400); RBC 3.83 XMIL (4.7-6.1); WBC 11.97 X1000 (4.8-10.8)
[2019-10-24 10:55] LABS: URINE SOURCE CLEAN CATCH
[2019-10-24 11:12] LABS: UR EPITHELIAL CELLS <10 /HPF (<10); URINE BACTERIA NEGATIVE /HPF; URINE RBC TNTC /HPF (<10); URINE WBC 20-40 /HPF (<10)
[2019-10-24 11:23] LABS: ALB/GLOB RATIO 1.1; ALBUMIN 2.9 g/dL (3.5-5.0); CALCIUM 8.3 mg/dL (8.8-10.2); CREATININE 1.9 mg/dL (0.7-1.2); TOTAL BILIRUBIN 0.25 mg/dL (0.20-1.00); TOTAL PROTEIN 5.5 g/dL (6.3-8.3)
[2019-10-24 11:24] LABS: BILIRUBIN URINE NEGATIVE (NEGATIVE); BLOOD URINE MODERATE (NEGATIVE); COLOR BROWN; GLUCOSE URINE NEGATIVE (NEGATIVE); KETONE URINE NEGATIVE (NEGATIVE); LEUKOCYTES URINE TRACE (NEGATIVE); NITRITE URINE NEGATIVE (NEGATIVE); PH URINE 5.5; PROTEIN URINE 100 mg/dL (NEGATIVE); SP GRAVITY URINE 1.019; TURBIDITY URINE TURBID (CLEAR); UROBILINOGEN URINE NORMAL (NORMAL)
--- NOTE | 2019-10-24 11:37 | EKG Report ---
Test Performed on : 10/24/2019 09:36:15 AM Test Reason : ED. No order in [place] Blood Pressure : / mmHG Vent. Rate : 145 BPM Atrial Rate : 133 BPM P-R Int : 000 ms QRS Dur : 114 ms QT Int : 326 ms P-R-T Axes : 000 013 045 degrees QTc Int : 506 ms Undetermined rhythm Low voltage QRS Incomplete right bundle branch block T wave abnormality, consider anterior ischemia Abnormal ECG When compared with ECG of 15-SEP-2014 22:35, Current undetermined rhythm precludes rhythm comparison, needs review Incomplete right bundle branch block is now present Unconfirmed Result
[2019-10-24] MEDS ORDERED: DILAUDID IV ONE ×4 (11:40→19:35)
[2019-10-24] MEDS ORDERED: ROCEPHIN 1 GM in NS 50 ML IV ONE (11:40)
[2019-10-24] MEDS ORDERED: BENTYL PO ONE (11:40)
[2019-10-24] MEDS ORDERED: LEVSIN PO ONE (11:41)
--- NOTE | 2019-10-24 12:00 | Diag Imaging Result Doc PS360 ---
EXAM: CT ABDOMEN/PELVIS W/O CONTRAST INDICATION: abd pain, acute kidney injury TECHNIQUE: This exam was performed using automated exposure control, adjustment of mA or kV according to patient size, and/or use of iterative reconstruction technique. COMPARISON: 10/19/2019 FINDINGS: Mild airspace consolidations at both lung bases are approximately stable. There has been improvement of the bronchial mucous impaction at the right lung base. The gallbladder, liver, spleen, pancreas, and adrenal glands are essentially unremarkable. There is a stable giant right renal cyst with a few small calcifications at its periphery. The right ureteral stone seen on the previous study is not identified and appears to have been extracted during the interval. However, there is still mild right hydroureteronephrosis that is essentially unchanged. Nonobstructing intrarenal stones are approximately stable as compared to the previous study. There is a small droplet of gas in one of the right renal calyces that is assumed to be from recent instrumentation. The urinary bladder is partially distended. Urinary bladder wall is mildly thickened but stable. This is probably trabecular hypertrophy. Correlate clinically to exclude a component of cystitis. The prostate is mildly prominent. There is a large amount stool in colon and rectum suggesting constipation. There is mild uncomplicated diverticulosis coli. There are a few mildly prominent loops of small bowel with air-fluid levels that are nonspecific but are probably related to the constipation. There is no evidence of small bowel obstruction. The remainder of the GI tract is essentially unremarkable. IMPRESSION: 1.Bibasilar mild infiltrates and bronchiectasis that is similar to the previous study. However, mucous plugging at the right lung base has improved. 2.Bilateral nephrolithiasis with interval extraction of an obstructing stone in the right ureter. However, there is persistent mild right hydroureteronephrosis. 3.Mild stable urinary bladder wall thickening that is probably due to trabecular hypertrophy. Correlate clinically to exclude a component of cystitis. 4.Large amount stool in the colon and rectum suggesting constipation. 5.Stable giant right renal cyst. 6.A few mildly prominent loops of small bowel with air-fluid levels that are nonspecific but probably related to the constipation. There is nothing that would suggest small bowel obstruction. 7.Other incidental/nonacute findings detailed above. Electronically signed by Sebastian Ballesteros 10/24/2019 11:57 AM
[2019-10-24] MEDS ORDERED: DILAUDID IV PRN (13:50)
[2019-10-24] MEDS ORDERED: FLEET ENEMA PR ONE (13:54)
[2019-10-24] MEDS ORDERED: TYLENOL PO PRN (19:39)
[2019-10-24] MEDS ORDERED: LOMOTIL PO PRN (19:39)
[2019-10-24] MEDS ORDERED: ZITHROMAX PO SCH (19:45)
[2019-10-24] MEDS: PATIENT'S OWN MED PO SCH (20:34)
[2019-10-24] MEDS: ALBUTEROL NEB INH SCH (20:41)
[2019-10-24] MEDS ORDERED: LIPITOR PO SCH (21:00)
[2019-10-24] MEDS ORDERED: CORTEF PO SCH (21:00)
[2019-10-24] MEDS ORDERED: FLOMAX PO SCH (21:00)
[2019-10-24] MEDS ORDERED: FLORINEF PO SCH (21:00)
--- NOTE | 2019-10-24 21:25 | HISTORY AND PHYSICAL ---
PRIMARY CARE PHYSICIAN: Dr. Rishabh Garza. CHIEF COMPLAINT: Intractable abdominal pain. HISTORY OF PRESENT ILLNESS: A 74-year-old white male with a complicated past medical history presents for evaluation of above-mentioned symptoms. Pertinent history of present illness began on 07/19/2020. At that time, patient presented to the emergency department with acute onset right flank pain. The patient was fully evaluated in the emergency department. CT scan confirmed a proximal right ureteral stone. A large renal cyst was also identified and noted to be stable. Pain management was attempted, although this proved unsuccessful. Ultimately, patient was admitted to the hospital for pain control. Urology was consulted. The patient was taken for ureteroscopy and basket stone removal with subsequent stent placement. The patient tolerated the procedure quite well. Patient was discharged home on 07/20/2020. While at home, patient continued to have some flank discomfort and bladder spasms. The patient was seen in Dr. Ya's office on 07/21/2020. At that time Simpson catheter was removed. On 10/22/2019 patient removed the ureteral stent. Over the course of the following 6-8 hours, patient states he did quite well. During the evening hours Thursday, he developed mild abdominal discomfort. Yesterday the pain increased. The patient was able to take pain medications with stability. The patient was able to the eat throughout the day without evidence of nausea and vomiting. This morning, patient awoke with significant right flank and rectal pain. The patient attempted to have a bowel movement, although unsuccessfully. With progression of his symptoms, patient presented to the emergency department. While there, once again full evaluation was pursued. CT scan suggested basilar mild infiltrates and bronchiectasis similar to previous study, bilateral nephrolithiasis with interval extraction of the obstructing stone in the right ureter, persistent mild right hydronephrosis, mild stable urinary bladder wall thickening and a large amount of stool in the colon and rectum suggesting constipation with mildly prominent loops of small bowel with air-fluid levels which were nonspecific, but probably related to the constipation. The patient was again treated with pain medications while in the emergency department. A fleets enema was performed, although proved unsuccessful. Upon my arrival this evening for admission, patient was writhing in pain. The patient's bladder scan revealed a significant increase in volume. With the placement of a Simpson catheter, patient did achieve significant improvement in his acute pain, although his rectal pain persisted. The patient will be admitted to the hospital for full evaluation and management of intractable abdominal pain, urinary retention and rectal impaction. PAST MEDICAL HISTORY: 1. History of abnormal skin examination with multiple actinic keratoses. 2. Adrenal insufficiency. 3. Rankin esophagus. 4. Benign prostatic hypertrophy. 5. History of C7 aneurysmal bone cyst. 6. Bronchiectasis. 7. Chronic renal insufficiency with creatinine ranging between 1.3 and 1.9. 8. Diverticulosis. 9. History of seizure disorder diagnosed after craniotomy and resection of large lymphoma in 2009. 10. Reflux disease. 11. Hypertriglyceridemia. 12. Hearing loss. 13. Hyperlipidemia. 14. Hypogammaglobulinemia. 15. Hypothyroidism. 16. Irritable bowel syndrome. 17. History of acute traumatic right MCL tear in 2013. 18. History of stage IV mantle cell lymphoma diagnosed in 1999. He is status post chemotherapy followed by stem cell transplant in [place]. A recurrence was noted in 2009. He is status post neurosurgical intervention by Dr. Lopez followed by chemotherapy, XRT, and repeat stem- cell transplantation. Associated complication have included seizure disorder, DVT/PTE, and hemolytic anemia. 19. Elevated MCV likely secondary to chemotherapeutic intervention. 20. Tobacco use between the ages of 17 and 72. 21. Obstructive sleep apnea. 22. Osteoarthritis. 23. Overweight. 24. History of a large renal cyst. CURRENT MEDICATIONS: 1. Albuterol twice daily. 2. Atorvastatin 80 mg at bedtime. 3. Azithromycin 250 mg 3 times daily. 4. Bentyl 10 mg 3 times daily. 5. Calcium plus vitamin D 2 tablets twice daily. 6. Calquence 100 mg twice daily. 7. Centrum Silver 1 tablet daily. 8. Doxycycline 100 mg daily. 9. Eliquis 5 mg twice daily. 10. Fludrocortisone 1 mg at bedtime. 11. Folic acid 1 mg daily. 12. Hydrocortisone 20 mg in the morning and 10 mg at bedtime. 13. Alma 0.5/0.4 daily. 14. Lasix 20 mg daily. 15. Keppra 250 mg twice daily. 16. Lomotil 1 tablet twice daily as needed. Metamucil daily as needed. 17. Mucinex DM twice daily. 18. Pepcid 20 mg twice daily. 19. Potassium chloride 20 mEq 3 times daily. 20. Slow-mag twice daily. 21. Valtrex 500 mg daily. 22. Vitamin B12 monthly. ALLERGIES: Patient answered no known drug allergies. SOCIAL HISTORY: The patient smoked 1 cigar per day for 15 years followed by 1 pipe per day for 10 years. He stopped in January 2017. He has approximately 4 alcoholic drinks per week. He denies illicit drug use. He is a retired radiologist. He enjoys hunting, fishing, and golfing. He exercises intermittently. FAMILY HISTORY: Patient's father passed at age 64 secondary to complications of CLL. The patient's mother passed at age 95 secondary to complications of "old age." She had a history of osteoarthritis and dementia. REVIEW OF SYSTEMS: A 12 point review of systems was performed. Pertinent positives and negatives noted in history present illness. PHYSICAL EXAMINATION: VITAL SIGNS: Temperature 98.3 degrees, heart rate 101, respirations 20, blood pressure is 118/70. GENERAL: Well nourished, well developed, mild to moderate acute distress associated with pain. HEENT: Normocephalic, atraumatic. Pupils equal, round, react to light. Extraocular muscles intact. Sclerae anicteric. [place] conjunctivae. Oral and nasopharynx clear without exudate. NECK: Supple. No lymphadenopathy. No thyromegaly. No bruits auscultated. CARDIOVASCULAR: Regular rate and rhythm. No significant murmurs, rubs, or gallops. PULMONARY: Crackles at bilateral bases. Adequate air movement. ABDOMEN: Slightly distended. Tender throughout without guarding or rebound. Positive bowel sounds. EXTREMITIES: Moves all extremities well. No significant clubbing, cyanosis, or edema. NEUROLOGIC: Cranial nerves 2-12 grossly intact. Motor and sensory grossly intact. PSYCHOLOGIC: Appropriate. LABORATORY: White blood cell count 11.97, hemoglobin 12.7, hematocrit 38.9, platelet count 246,000. Sodium 144, potassium 4.0, chloride 109, bicarb 23, BUN 32, creatinine 1.9, glucose 102, calcium 8.3, total bilirubin 0.25, total protein 5.5, albumin 2.9, alkaline phosphatase 97, AST 21, ALT 22. Urinalysis revealed moderate blood and trace leukocytes with 20 to 40 white blood cells per high-powered field. CT scan returned as described above. ASSESSMENT/PLAN: A 74-year-old white male with a very complicated past medical history presents for evaluation of intractable abdominal and rectal pain. Initially, patient's diagnosis was most consistent with underlying constipation/obstipation. The patient's pain was out of proportion to his findings on CT scan requiring multiple doses of Dilaudid. This evening, patient appears to have also developed urinary retention. With the addition of a Simpson catheter, his overall symptoms have improved. 1. Admit to General Medicine. 2. Intractable abdominal pain-as above, this appears to be secondary to underlying constipation/rectal impaction. We will start patient on soapsuds enemas. We will disimpact as necessary. We will start Julissa-Colace and MiraLAX therapy. If patient does not achieve significant improvement, we will consider whether GoLYTELY and/or gastroenterology consultation is appropriate. 3. Urinary retention-I suspect this is a consequence of multiple doses of Dilaudid. Simpson catheter was placed. We will continue this and consult urology in the a.m. 4. Possible urinary tract infection-we will continue Rocephin therapy. We will follow urine culture. 5. Acute on chronic renal failure-patient's creatinine in the upper limits of his baseline. Last creatinine in clinic was 1.4. We will continue hydration. 6. Hydronephrosis-this likely is still a consequence of his recent urologic procedure. We will remain aware. 7. Adrenal insufficiency-we will continue patient on fludrocortisone and hydrocortisone intervention. 8. Reflux disease/Rankin esophagus-we will continue patient on Pepcid therapy. 9. Hyperlipidemia/hypertriglyceridemia-we will continue atorvastatin therapy. 10. History of mantle cell lymphoma-we will continue patient on Calquence therapy. 11. Fluid, electrolytes, nutrition. We will monitor electrolytes. Normal saline at 75 mL an hour, clear liquid diet. 12. Prophylaxis. Patient will be continued on Eliquis therapy. cc: Rishabh Garza MD
[2019-10-24] MEDS: NS 1,000 ML IV SCH (21:26)
[2019-10-24] MEDS: MIRALAX PO SCH (21:28)
[2019-10-24] MEDS: PEPCID PO SCH (21:30)
[2019-10-24] MEDS: ELIQUIS PO SCH (21:31)
[2019-10-24] MEDS: SLOW-MAG PO SCH (21:31)
[2019-10-24] MEDS: BENTYL PO SCH (21:32)
[2019-10-24] MEDS: CITRACAL + D PO SCH (21:32)
[2019-10-24] MEDS: PERICOLACE PO SCH (21:33)
[2019-10-24] MEDS: MUCINEX DM PO SCH (21:33)
[2019-10-24] MEDS: KLOR-CON PO SCH (21:35)
[2019-10-24] MEDS: KEPPRA PO SCH (21:35)
[2019-10-24] MEDS: DILAUDID IV PRN (21:50)
[2019-10-25] MEDS: DILAUDID IV PRN ×3 (00:03→05:01)
[2019-10-25 01:02] LABS: URINE SOURCE CATH
[2019-10-25 02:18] LABS: BILIRUBIN URINE NEGATIVE (NEGATIVE); BLOOD URINE LARGE (NEGATIVE); COLOR BROWN; GLUCOSE URINE NEGATIVE (NEGATIVE); KETONE URINE NEGATIVE (NEGATIVE); LEUKOCYTES URINE MODERATE (NEGATIVE); NITRITE URINE NEGATIVE (NEGATIVE); PH URINE 5.5; PROTEIN URINE 70 mg/dL (NEGATIVE); SP GRAVITY URINE 1.015; TURBIDITY URINE TURBID (CLEAR); UR EPITHELIAL CELLS <10 /HPF (<10); URINE BACTERIA NEGATIVE /HPF; URINE RBC TNTC /HPF (<10); URINE WBC 20-40 /HPF (<10); UROBILINOGEN URINE NORMAL (NORMAL)
[2019-10-25 03:20] LABS: URINE CASTS NONE SEEN; URINE CRYSTALS NONE SEEN; URINE SMALL ROUND CELLS NONE SEEN; URINE YEAST NONE SEEN
[2019-10-25] MEDS ORDERED: SYNTHROID PO SCH (07:00)
[2019-10-25 07:24] LABS: BASO# 0.02 X1000 (0.0-0.2); BASO% 0.2 % (0.0-0.8); EOS# 0.08 X1000 (0.0-0.7); EOS% 0.8 % (0.0-10.0); HEMATOCRIT 37.4 % (42.0-52.0); HEMOGLOBIN 11.7 g/dL (14.0-18.0); IMM GRAN# 0.02 X1000 (0.0-0.04); IMM GRAN% 0.2 % (0.0-0.5); LYMPH# 1.27 X1000 (1.2-3.4); LYMPH% 12.3 % (20.5-51.1); MCH 31.9 PG (27-31); MCHC 31.3 g/dL (33-37); MCV 101.9 FL (81-99); MONO% 16.5 % (1.7-9.3); MPV 10.5 FL (7.4-10.4); NEUT# 7.22 X1000 (1.4-6.5); PLT 255 X1000 (130-400); RBC 3.67 XMIL (4.7-6.1); RDW 15.1 % (11.5-14.5); WBC 10.31 X1000 (4.8-10.8)
[2019-10-25 08:02] LABS: ALB/GLOB RATIO 1.1; ALBUMIN 2.6 g/dL (3.5-5.0); CALCIUM 8.2 mg/dL (8.8-10.2); CREATININE 1.6 mg/dL (0.7-1.2); POTASSIUM 4.4 mmol/L (3.5-5.1); TOTAL BILIRUBIN 0.3 mg/dL (0.20-1.00); TOTAL PROTEIN 4.9 g/dL (6.3-8.3)
[2019-10-25] MEDS: ALBUTEROL NEB INH SCH (08:45)
--- NOTE | 2019-10-25 08:58 | Diag Imaging Result Doc PS360 ---
ABDOMEN FLAT/UPRIGHT - 10/25/2019 INDICATION: abdominal pain COMPARISON: CT from 10/24/2019 FINDINGS: There has been resolution of the constipation with rectal stool impaction. Grossly normal quantity of stool now. No bowel obstruction or free air. Numerous large phleboliths in the pelvis. IMPRESSION: No acute disease. Electronically signed by John Hodges 10/25/2019 8:56 AM
[2019-10-25] MEDS ORDERED: VALTREX PO SCH (09:00)
[2019-10-25] MEDS ORDERED: CENTRUM SILVER PO SCH (09:00)
[2019-10-25] MEDS ORDERED: DOXYCYCLINE PO SCH (09:00)
[2019-10-25] MEDS ORDERED: LASIX PO SCH (09:00)
[2019-10-25] MEDS ORDERED: CORTEF PO SCH (09:00)
[2019-10-25] MEDS: PEPCID PO SCH (09:00)
[2019-10-25] MEDS: PATIENT'S OWN MED PO SCH (09:00)
[2019-10-25] MEDS ORDERED: ROCEPHIN 1 GM in NS 50 ML IV SCH (09:00)
[2019-10-25] MEDS ORDERED: AVODART PO SCH (09:00)
[2019-10-25] MEDS: PERICOLACE PO SCH (09:21)
[2019-10-25] MEDS: ELIQUIS PO SCH (09:22)
[2019-10-25] MEDS: BENTYL PO SCH ×3 (09:22→15:50)
[2019-10-25] MEDS: KLOR-CON PO SCH ×2 (09:22→15:45)
[2019-10-25] MEDS: CITRACAL + D PO SCH (09:22)
[2019-10-25] MEDS: KEPPRA PO SCH (09:22)
[2019-10-25] MEDS: SLOW-MAG PO SCH (09:23)
[2019-10-25] MEDS: MUCINEX DM PO SCH (09:23)
[2019-10-25] MEDS: MIRALAX PO SCH (09:24)
[2019-10-25] MEDS: NS 1,000 ML IV SCH (11:42)
[2019-10-25 15:56] VITALS: BP 122/71
--- NOTE | 2019-10-25 22:21 | DISCHARGE SUMMARY ---
ADMISSION DATE: 10/24/2019 DISCHARGE DATE: 10/25/2019 ADMISSION DIAGNOSIS: Intractable abdominal pain. DISCHARGE DIAGNOSES: 1. Intractable abdominal pain secondary to constipation/rectal impaction, resolved. 2. Urinary retention, resolved. 3. Possible urinary tract infection. 4. Acute on chronic renal failure, improved. 5. Hydronephrosis, present on arrival. 6. Adrenal insufficiency, present on arrival. 7. Reflux disease, present on arrival. 8. Hyperlipidemia/hypertriglyceridemia, present on arrival. 9. History of mantle cell lymphoma, present on arrival. CONSULTATIONS: Dr. Ya with Urology was consulted for further evaluation and management of urinary retention. PROCEDURES: 1. CT scan of the abdomen and pelvis was performed on 10/24/2019 which revealed bibasilar mild infiltrates and chronic bronchiectasis similar to previous study. However, mucus plugging at the right lung base has improved. Bilateral nephrolithiasis with interval extraction of an obstructing stone in the right ureter. However, there is persistent mild right hydronephrosis. Mild stable urinary bladder wall thickening that is probably due to trabecular hypertrophy. Large amount of stool in the colon and rectum suggesting constipation. Stable giant right renal cyst. A few mildly prominent loops of small bowel and air fluid levels that are nonspecific but probably related to the constipation. There is nothing that would suggest small bowel obstruction. 2. Flat and upright of the abdomen was performed on 10/25/2019 which revealed resolution of constipation with rectal stool impaction. Grossly normal quantity of stool now. HISTORY AND PHYSICAL EXAMINATION: See admit note. PHYSICAL EXAMINATION PRIOR TO DISCHARGE: Temperature 98.6 degrees, heart rate 84, respirations 16, blood pressure is 122/71. General: Well nourished, well developed, no acute distress. Cardiovascular: Regular rate and rhythm. No significant murmurs, rubs, or gallops. Pulmonary: Crackles and rhonchi at bilateral bases. Adequate air movement. Abdomen: Soft, nontender, nondistended. Positive bowel sounds. Extremities: Moves all extremities well. No significant clubbing, cyanosis, or edema. Dermatologic: Evaluation reveals no evidence of rash. LABORATORY DATA: Prior to discharge. White blood cell count 10.31, hemoglobin 11.7, hematocrit 37.4, platelet count 255,000. Sodium 143, potassium 4.4, chloride 109, bicarb 26, BUN 25, creatinine 1.6, glucose 103, calcium 8.2, total bilirubin 0.30, total protein 4.9, albumin 2.6, alkaline phosphatase 96, AST 17, ALT 19. HOSPITAL COURSE: Patient was admitted as per history and physical examination. Hospital course per condition. 1. Intractable abdominal pain-upon admission, patient was noted to have intractable abdominal pain. Medical intervention was pursued in the ER, although unsuccessfully. Ultimately, it required multiple rounds of IV Dilaudid to adequately controlled symptoms. With the diagnosis of rectal stool impaction, patient was treated as noted below. Ultimately, at time of discharge, patient's pain was controlled. 2. Rectal stool impaction with significant constipation-upon admission, patient was noted to have a significant abnormality per CT scan. The patient was provided a Fleet enema without improvement. Patient subsequently was treated with soapsuds enemas, although this proved marginally effective. Manual disimpaction was also only marginally effective. Ultimately, with the addition of Julissa-Colace and MiraLAX, patient did began passing stool. At time of discharge he had multiple bowel movements. Patient will be discharged home with as needed MiraLAX and Julissa-Colace. We will encourage patient to decrease narcotic usage. 3. Urinary retention-on the night of admission, patient was noted to have acute urinary retention. A Simpson catheter was placed with success. The patient will be discharged home with a Simpson catheter for 1 week. He is to follow with Dr. Ya to have this removed. 4. Possible urinary tract infection-patient was treated with Rocephin while hospitalized. He will transition back to Macrobid at discharge. He has 2 additional days at home. We will follow up urine culture. If this returns negative, he is to discontinue further antibiotics. If urine cultures return positive, we will plan to adjust antibiotic intervention as necessary. 5. Acute on chronic renal failure-upon admission, patient's creatinine was noted to be 1.9. This is the upper limits of his normal range. With hydration, this decreased to 1.6. We will continue to encourage hydration as an outpatient. 6. Hydronephrosis-this likely is a consequence of his recent urologic intervention. At this point, no further intervention is warranted. 7. Adrenal insufficiency-the patient was continued on fludrocortisone and hydrocortisone while hospitalized. We will continue this as an outpatient. 8. Reflux disease/Rankin esophagus-symptoms remained adequately controlled with Pepcid therapy. We will continue this. 9. Hyperlipidemia/hypertriglyceridemia-patient was continued on atorvastatin therapy while hospitalized. 10. History of mantle cell lymphoma-patient was continued on Calquence while hospitalized. This will be continued as an outpatient. DISCHARGE CONDITION: Good. DISPOSITION: Discharge to home. MEDICATIONS: 1. Hydrocortisone 20 mg in the morning and 10 mg at bedtime. 2. Lomotil 1 tablet twice daily as needed. 3. MiraLAX 17 g in 8 ounces of juice daily as needed. 4. Julissa-Colace 1 tablet twice daily as needed for constipation. 5. Bentyl 10 mg 3 times daily. 6. Keppra 250 mg twice daily. 7. Potassium chloride 20 mEq 3 times daily. 8. Calquence 100 mg twice daily. 9. Valtrex 500 mg daily. 10. Eliquis 5 mg twice daily. 11. Pepcid 40 mg twice daily. 12. Lasix 20 mg daily. 13. Mucinex DM 1 tablet twice daily. 14. Slow-Mag 1 tablet twice daily. 15. Calcium plus vitamin D 2 tablets twice daily. 16. Avodart 0.5 mg daily. 17. Doxycycline 100 mg daily. 18. Fludrocortisone 0.1 mg at bedtime. 19. Atorvastatin 80 mg at bedtime. 20. Synthroid 88 mcg daily. 21. Azithromycin 250 mg 3 times weekly. 22. Flomax 0.4 mg 2 tablets at bedtime. 23. Macrobid 100 mg twice daily for an additional 2 days. 24. Albuterol nebulizer twice daily. 25. Multivitamin 1 tablet daily. 26. Tylenol 650 mg every 6 hours as needed. 27. [place]hen[place] 7.5/325 one tablet every 6 hours as needed. FOLLOWUP: 1. The patient is to follow with me in approximately 1 to 2 weeks. 2. Patient is to follow with Dr. Ya as arranged. cc: Rishabh Garza MD
== END 2019-10-25 20:09 | disposition home or self-care (01) ==
LOC: ED 09:04 → INTOOBSV 14:40 → EDIPHOLD 14:40 → 4N 16:52
PROVIDERS: ADMIT Internal Medicine; ATTEND Internal Medicine

== ENCOUNTER 2019-10-28 08:02 | Inpatient (IN) ==
[2019-10-28] MEDS ORDERED: DILAUDID IV ONE ×4 (08:16→13:48)
[2019-10-28] MEDS ORDERED: ZOFRAN IV ONE (08:16)
--- NOTE | 2019-10-28 08:26 | PROVIDER DOCUMENTATION ---
HPI-Abdominal Pain/GI Problem - General Chief Complaint: Flank Pain Stated Complaint: SIDE PAIN Time Seen by Provider: 10/28/19 08:15 Source: patient, family, RN/MD, old records Allergies/Adverse Reactions: Patient Allergies Allergy/AdvReac Type Severity Reaction Status Date / Time naproxen [From Aleve] AdvReac ANAPHYLAXIS Verified 10/28/19 11:37 Home Medications: Home Medication List Medication Instructions Recorded Confirmed Last Taken Type Acalabrutinib [Calquence] 100 mg PO BID 01/26/19 10/24/19 02/22/19 History Dicyclomine [Bentyl] 10 mg PO 0900,1500,2100 01/26/19 10/24/19 02/22/19 History Levetiracetam [Keppra] 250 mg PO BID 01/26/19 10/24/19 02/23/19 05:00 History Potassium Chloride 20 meq PO 0900,1500,2100 01/26/19 10/24/19 02/22/19 History Valacyclovir HCl [Valtrex] 500 mg PO DAILY 01/26/19 10/24/19 02/22/19 History Apixaban [Eliquis] 5 mg PO BID #0 02/23/19 10/24/19 02/20/19 Rx Calcium Citrate/Vitamin D3 2 tab PO BID 10/19/19 10/24/19 Unknown History [Calcium Citrate - Vit D3 Tab] Famotidine [Pepcid] 40 mg PO BID 10/19/19 10/24/19 Unknown History Furosemide 20 mg PO DAILY 10/19/19 10/24/19 Unknown History Guaifenesin/Dm E.r. [Mucinex Dm] 1 tab PO BID 10/19/19 10/24/19 Unknown History Magnesium Cl D.r. [Slow-Mag] 1 tab PO BID 10/19/19 10/24/19 Unknown History ATORVAstatin [Lipitor] 80 mg PO QHS tab 10/20/19 10/24/19 Unknown Rx Acetaminophen [Tylenol] 650 mg PO Q6H PRN PRN tab 10/20/19 10/24/19 Unknown Rx Albuterol [Albuterol Neb] 2.5 mg INH RTQ12H neb 10/20/19 10/24/19 Unknown Rx Azithromycin [Zithromax] 250 mg PO MoWeFr tab 10/20/19 10/24/19 Unknown Rx Doxycycline 100 mg PO DAILY tab 10/20/19 10/24/19 Unknown Rx Dutasteride [Avodart] 0.5 mg PO DAILY cap 10/20/19 10/24/19 Unknown Rx Fludrocortisone [Florinef] 0.1 mg PO QHS tab 10/20/19 10/24/19 Unknown Rx Hydrocodone/APAP 7.5 mg/325 mg 1 ea PO Q6H PRN PRN #15 tab 10/20/19 10/24/19 Unknown Rx [[place]-7.5] Levothyroxine [Synthroid] 88 microgm PO DAILY@0700 tab 10/20/19 10/24/19 Unknown Rx Multivitamins/Minerals [Centrum 1 ea PO DAILY tab 10/20/19 10/24/19 Unknown Rx Silver] Nitrofurantoin Clarke/Macrocryst 100 mg PO BID #6 cap 10/20/19 10/24/19 Unknown Rx [Macrobid] Tamsulosin [Flomax] 2 tab PO QHS #60 cap 10/20/19 10/24/19 Unknown Rx Diphenoxylate/Atropine [Lomotil] 1 ea PO BID PRN PRN tab 10/25/19 Unknown Rx Hydrocortisone [Cortef] 10 mg PO HS tab 10/25/19 Unknown Rx Hydrocortisone [Cortef] 20 mg PO QAM tab 10/25/19 Unknown Rx Polyethylene Glycol 3350 [Miralax] 17 gm PO BID PRN PRN powder, 10/25/19 Unknown Rx packet Sennosides/Docusate Sodium 1 ea PO BID PRN PRN tab 10/25/19 Unknown Rx [Pericolace] - History of Present Illness-ABD Nature of Presenting Problems: pt w/ hx of giant renal pelvis cyst on R, recent stone extraction and ureteral stent, subseq removed; admitted earlier in the week of intractable pain, fecal impaction, and persistent hydronephrosis thought to complicate spasm from recent instrumentation. He has an indwelling chapman due to the recent urinary retention (? possibly due to impaction), with neg. urine culture obtained earlier this week. states his pain recurred at 5a today, and he has obtained ~ no relieft from his home [place] 7.5 taken at 6a today. pt restless, pacing in exam room due to pain. reports NKA. Review of Systems - Adult - REVIEW OF SYSTEMS - ADULT Constitutional: reports: no symptoms reported Eyes: reports: no symptoms reported Ears, Nose, Mouth & Throat: reports: no symptoms reported Cardiovascular: reports: no symptoms reported Respiratory: reports: no symptoms reported Gastrointestinal: reports: no symptoms reported Genitourinary: reports: see HPI Musculoskeletal: reports: no symptoms reported Integumentary: reports: no symptoms reported Neurological: reports: no symptoms reported Psychiatric: reports: no symptoms reported Endocrine: reports: no symptoms reported Hematologic/Lymphatic: reports: no symptoms reported Allergic/Immunologic: reports: no symptoms reported All Other Systems: Reviewed and Negative Past History - Adult - PAST MEDICAL HISTORY-ADULT Review of Records: reports: Old Records Reviewed Major Childhood Illnesses: reports: denies history Cardiovascular: reports: blood clots (PE) Respiratory: reports: lung disease, pneumonia Gastrointestinal: reports: GERD Obstetrical/Gynecological: reports: denies history Genitourinary: reports: kidney disease, kidney stones Musculoskeletal: reports: denies history Neurological: reports: Seizures/Epilepsy Psychiatric: reports: denies history Endocrine/Immune: reports: adrenal insufficiency, other (Tipton's, lymphoma) Other Conditions: reports: other cancer (mantle cell lymphoma) - PRIOR SURGERIES/PROCEDURES Surgical/Procedure History: reports: recent surgery (colonoscopy and ureteral stone surgery) - IMMUNIZATION STATUS Childhood Immunizations: UTD Flu Vaccine: UTD - FAMILY HISTORY Family History: reviewed, not pertinent Physical Exam-General - PHYSICAL EXAM-ADULT Initial Vital Signs Reviewed: Yes - CONSTITUTIONAL General Appearance: alert, moderate distress - EYES Eyes: pink conjunctivae - HEAD, EARS, NOSE, MOUTH & THROAT HENMT: moist mucous membranes - NECK Neck: supple - RESPIRATORY Respiratory: lungs clear - CARDIOVASCULAR Cardiovascular: regular rate, rhythm - GASTROINTESTINAL (ABDOMEN) Abdominal Exam: non tender, soft - LYMPHATIC Lymphatic: no adenopathy - MUSCULOSKELETAL Back Exam: normal inspection, CVA tenderness (flank pain, unaffected by percussion) Extremity: normal gait Peripheral Pulses: radial (R): 2+, radial (L): 2+ - SKIN Integumentary: warm/dry. negative: rash - NEUROLOGIC Neurologic: counseling director II-XII nml as tested, grossly normal - PSYCHIATRIC Psych/Mental Status: normal mood/affect, normal thought content Progress - PLAN OF CARE/RESULTS Progress/Plan/Lab Results: Vital Signs - 8 hr 10/28/19 08:07 Temperature 97.5 F L Pulse Rate 92 H Respiratory Rate 20 Blood Pressure 120/76 O2 Sat by Pulse Oximetry 98 Orders Category Date Time Status BASIC METABOLIC PANEL [CHEM] Stat Lab 10/28/19 08:16 Uncollected CBC WITH DIFF [HEME] Stat Lab 10/28/19 08:16 Uncollected Hydromorphone [Dilaudid] Med 10/28/19 08:16 Discontinued 1 mg IV NOW ONE Ondansetron [Zofran] Med 10/28/19 08:16 Discontinued 4 mg IV NOW ONE Result Diagrams: 10/28/19 09:20 10/28/19 09:20 - REASSESSMENT Reassessment #2 Time Reassessed: 12:06 Status: improving (pt has achieved pain control after 2nd mg Dilaudid; however creat up to 2.[address] confirms recurrent/new stone in R mid-ureter 5x7mm: will discuss w/ Dr. Garza. patient pain controlled at this time: however RN advised me at rest his sat 02 fell to "81%," she put him on 02 NC (current sat 97%). I have turned 02 off, will reassess, consider ABG if falls again.) Reassessment #3 Time Reassessed: 12:48 Status: unchanged (pt 02 sat has been stable and consistent in mid-90 range on RA.) - CONSULTS/PCP/HOSPITALIST Notification #1 *Consult/PCP/Hospitalist*: Greg Time Discussed: 12:14 Consult Disposition: Admit ((consult Dr. Ya: NPO for stone removal today if possible; Dialudid 1 mg q2 prn pain) #2 Consult: [place] Departure - Departure Date of Disposition Decision: 10/28/19 Time of Disposition Decision: 12:10 DIAGNOSIS: Ureterolithiasis Disposition: ADMITTED INPATIENT 09 Certified Medical Emergency: Emergent Condition: Stable - Critical Care Note This patient required my direct & personal management of CC.: No Attestation - Physician/ KIM Attestation The physician spent face to face time with patient:: Yes Advanced Practice Provider documentation review:: Supervising physician onsite and consulted in the evaluation and care of this patient. The physician did have a face to face encounter with the patient.
[2019-10-28 09:48] LABS: BASO# 0.06 X1000 (0.0-0.2); BASO% 0.6 % (0.0-0.8); EOS# 0.16 X1000 (0.0-0.7); EOS% 1.6 % (0.0-10.0); HEMATOCRIT 42.2 % (42.0-52.0); HEMOGLOBIN 13.2 g/dL (14.0-18.0); IMM GRAN# 0.03 X1000 (0.0-0.04); IMM GRAN% 0.3 % (0.0-0.5); LYMPH# 1.76 X1000 (1.2-3.4); LYMPH% 17.2 % (20.5-51.1); MCH 31.9 PG (27-31); MCHC 31.3 g/dL (33-37); MCV 101.9 FL (81-99); MONO# 1.29 X1000 (0.11-0.59); MONO% 12.6 % (1.7-9.3); MPV 10.6 FL (7.4-10.4); NEUT# 6.93 X1000 (1.4-6.5); NEUT% 67.7 % (42.2-75.2); PLT 314 X1000 (130-400); RBC 4.14 XMIL (4.7-6.1); RDW 14.9 % (11.5-14.5); WBC 10.23 X1000 (4.8-10.8)
[2019-10-28 10:10] LABS: CALCIUM 9.1 mg/dL (8.8-10.2); CREATININE 2.2 mg/dL (0.7-1.2)
--- NOTE | 2019-10-28 10:32 | Diag Imaging Result Doc PS360 ---
CT RENAL STONE SEARCH - 10/28/2019 INDICATION: severe flank pain COMPARISON: 10/24/2019 FINDINGS: There is a new large obstructing stone in the right proximal-mid ureter. This measures about 5 x 6.8 mm in AP and lateral dimensions. There is moderate right hydronephrosis. There are still several nonobstructing stones in the lower pole the right kidney. There is a tiny stone in the left kidney as well stable from prior. No left-sided obstruction. Stable large right renal cyst. The constipation has improved. Simpson catheter in the urinary bladder. There is significant indeterminate urinary bladder wall thickening. IMPRESSION: 1. New obstructing stone in the proximal-mid right ureter. Moderate right hydronephrosis. 2. Urinary bladder wall thickening, indeterminate. This exam was performed using automated exposure control, adjustment of mA or kV according to patient size, and/or use of iterative reconstruction technique Electronically signed by John Hodges 10/28/2019 10:29 AM
[2019-10-28] MEDS ORDERED: ZOFRAN IV PRN ×2 (12:15→14:06)
[2019-10-28] MEDS ORDERED: DILAUDID IV PRN ×2 (12:15→14:06)
[2019-10-28] MEDS ORDERED: NS 1,000 ML IV ONE (12:15)
[2019-10-28] MEDS ORDERED: LOMOTIL PO PRN (14:06)
[2019-10-28] MEDS ORDERED: MIRALAX PO PRN (14:06)
[2019-10-28] MEDS ORDERED: ZITHROMAX PO SCH (14:06)
[2019-10-28] MEDS ORDERED: TYLENOL PO PRN (14:06)
[2019-10-28] MEDS ORDERED: SOLU-CORTEF IV ONE (14:06)
[2019-10-28] MEDS ORDERED: PERICOLACE PO PRN (14:06)
[2019-10-28] MEDS ORDERED: XYLOCAINE-MPF 2% ONE (16:29)
[2019-10-28] MEDS ORDERED: DIPRIVAN 1% ONE (16:29)
[2019-10-28] MEDS ORDERED: DURAMORPH ONE (16:49)
[2019-10-28] MEDS ORDERED: DILAUDID ONE (16:49)
[2019-10-28] MEDS ORDERED: KEFZOL 1 GM/D5W 2 GM/100 ML IVPB ONE (16:54)
[2019-10-28] MEDS ORDERED: ZOFRAN ONE (17:11)
[2019-10-28] MEDS ORDERED: EPHEDRINE ONE (17:11)
[2019-10-28] MEDS ORDERED: ROBINUL ONE (17:16)
--- NOTE | 2019-10-28 17:18 | CONSULTATION ---
DATE OF CONSULTATION: 10/28/2019 CHIEF COMPLAINT: Right flank pain. 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 The patient developed excruciating right flank pain this morning and took a [place] with minimal relief. The patient has known history of kidney stones and underwent ureteroscopy and removal of stones on 10/19/2019. The patient had a 4 mm stone in the ureter itself with significantly enlarged right renal cyst as well as several small stones in the kidney. I performed a right ureteroscopy and removal stone with right ureteral stent placement from the ureter and was able to get into the kidney however, I could not visualize any significantly large stones due to patient's hematuria from being on Eliquis. The patient had a stone removed and did relatively well postoperatively. His stent was removed on Thursday. However he presented back to the emergency room with lower pelvic pain and was found to be significantly constipated, he was started on a bowel regiment and his pain improved. However, in the process he developed urinary retention and his catheter was inserted after being removed last week in the Urology office. The patient presents today complaining of persistent right flank pain and states that it is uncontrollable. He has received several doses of Dilaudid in the emergency room with minimal relief. The patient had a CT scan showing a 5 mm stone present in the proximal ureter on the right side with multiple other smaller stones in the kidney. PAST MEDICAL HISTORY: 1. Salvatore disease. 2. Rankin esophagus. 3. BPH. 4. Bronchiectasis. 5. Chronic renal insufficiency. 6. Diverticulosis. 7. History seizure disorder. 8. Hypertriglyceridemia . 9. Hyperlipidemia. 10. Hypogammaglobulinemia. 11. Hypothyroidism. 12. Irritable bowel. 13. Stage IV mantle cell lymphoma. 14. Obstructive sleep apnea . 15. Tobacco use formerly. 16. Large right renal cyst. 17. Osteoarthritis. PAST SURGICAL HISTORY: 1. Meniscus repair. 2. Stem cell transplant x2. 3. Craniotomy for resection of lymphoma. 4. Colonoscopy. 5. Ureteroscopy and removal of stones. ALLERGIES: Naproxen. HOME MEDICATIONS: 1. Albuterol. 2. Atorvastatin 80 mg. 3. Azithromycin 250 mg 3 times a week. 4. Bentyl 10 mg 3 times daily. 5. Calcium with vitamin D . 6. Calquence 100 mg b.i.d. 7. Centrum Silver. 8. Doxycycline. 9. Eliquis 5 mg b.i.d. 10. Fludrocortisone 1 mg at bedtime . 11. Folic acid. 12. Hydrocortisone 20 mg in the morning and 10 mg at nighttime. 13. Flomax 0.8 mg. 14. Dutasteride 0.5 mg. 15. Lasix 20 mg daily. 16. Keppra 250 mg b.i.d. 17. Lomotil b.i.d. 18. Metamucil. 19. Mucinex. 20. Pepcid. 21. Potassium chloride 20 mEq 3 times daily . 22. Valtrex. 23. Vitamin B12. SOCIAL HISTORY: Patient is a former smoker. Drinks alcohol beverages weekly. Denies any illicit drug use. FAMILY HISTORY: Denies family history malignancy. REVIEW OF SYSTEMS: 12-point review of systems performed with all pertinent positives and negatives in HPI. PHYSICAL EXAM: Vital signs: Temperature 97.5 degrees, heart rate 83, blood pressure 132/65, oxygen saturation 95% on room air. General: Moderate distress, alert and oriented x3. Respiratory: Good respiratory effort without audible wheezing, rales. HEENT: Normocephalic, atraumatic. Pupils equal, round, reactive to light. Neck: Trachea midline. Cardiovascular: Regular rate and rhythm. Abdomen: Soft, nondistended, tender to palpation in the right upper quadrant and right flank pain with some suprapubic tenderness. Urethral catheter in place draining clear yellow urine. Skin: Has multiple actinic keratosis. No obvious rashes. Neurologic: Gross motor sensory intact with evidence decreased hearing. Musculoskeletal: Moving all extremities. LABS: White blood cell count 10.2, hemoglobin 13.2, hematocrit 42.2, platelets 314,000. Sodium 146, potassium 4, chloride 112, bicarb 20, BUN 26, creatinine 2.2, glucose 101. IMAGING: CT scan images reviewed which showed a very large right renal cyst measuring greater than 20 cm in size. Evidence of mild hydronephrosis with calcification seen in lower pole of the right kidney as well as an obstructing 5 mm stone in the proximal to mid right ureter. Urethral catheter in place, a decompressed bladder. 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 The patient had significant right flank pain that is uncontrolled with intravenous pain medication. The patient has known history of kidney stones and a right renal cyst. The patient was seen last week for surgery and removal of stones on 10/19/2019 and is on Eliquis. Patient has a large right renal cyst likely relating distortion of the kidney and leading to recurrent stone formation and stone passage. The patient was seen for constipation and admitted at the beginning of the week. CT scan that time showed mild hydronephrosis with no obvious stones in the ureter at that time. I think patient has passed a stone since then causing significant pain. Talked with him. I recommend cystoscopy and removal of stone. The patient has been nothing by mouth. We will plan to add on procedure later today. Reviewed all risks, benefits, alternatives of procedure and he elected to proceed. We will plan for right ureteroscopy, laser lithotripsy, stone extraction and right ureteral stent placement. Will keep indwelling stent with no tether and would talk with him extensively regarding management of his right renal cyst as I think that it should be drained when the patient is able to hold his Eliquis. We will continue to monitor. Please call with questions, concerns. cc: MD Rishabh Bedoya MD MTDD
[2019-10-28] MEDS ORDERED: OFIRMEV 1000 MG/ISOTONIC SOLN 1,000 MG/100 ML BOTTLE ONE (17:29)
[2019-10-28] MEDS ORDERED: SOLU-CORTEF ONE (17:31)
[2019-10-28] MEDS ORDERED: SODIUM CHLORIDE 0.9% 10 ML ONE (17:40)
[2019-10-28] MEDS ORDERED: NEO-SYNEPHRINE ONE (17:40)
[2019-10-28] MEDS ORDERED: 1/2 NS 1,000 ML IV SCH (18:15)
[2019-10-28] MEDS: ALBUTEROL NEB INH SCH (19:18)
[2019-10-28] MEDS: BENTYL PO SCH ×2 (20:20→22:15)
[2019-10-28] MEDS: KLOR-CON PO SCH ×2 (20:24→22:16)
[2019-10-28] MEDS ORDERED: LIPITOR PO SCH (21:00)
[2019-10-28] MEDS ORDERED: ACALABRUTINIB 100 MG PO SCH (21:00)
[2019-10-28] MEDS ORDERED: FLORINEF PO SCH (21:00)
[2019-10-28] MEDS ORDERED: CORTEF PO SCH (21:00)
[2019-10-28] MEDS ORDERED: FLOMAX PO SCH (21:00)
[2019-10-28] MEDS: KEPPRA PO SCH (22:14)
[2019-10-28] MEDS: PEPCID PO SCH (22:14)
[2019-10-28] MEDS: CITRACAL + D PO SCH (22:16)
[2019-10-28] MEDS: MUCINEX DM PO SCH (22:18)
[2019-10-28] MEDS: SLOW-MAG PO SCH (22:18)
--- NOTE | 2019-10-28 23:02 | HISTORY AND PHYSICAL ---
PRIMARY CARE PHYSICIAN: Rishabh Garza MD CHIEF COMPLAINT: Intractable right flank pain. HISTORY OF PRESENT ILLNESS: A 74-year-old white male with a complicated past medical history presents for evaluation of above-mentioned symptoms. Pertinent history of present illness began on 10/09/2019. At that time, patient presented to the emergency department with acute onset right flank pain. Full evaluation was pursued while in the emergency department. CT scan confirmed a proximal right ureteral stone. A large renal cyst was also identified but noted to be stable. Pain management was attempted, although this proved unsuccessful. The patient was admitted to the hospital and taken for ureteroscopy and basket stone removal with subsequent stent placement. He tolerated this procedure quite well. On 10/20/2019, patient was discharged home. While at home, he had some flank discomfort as well as bladder spasms. He was seen in Dr. Ya's office on 10/21/2019. Simpson catheter was removed at that time. On 07/22/2020, the patient self removed his ureteral stent. Patient did reasonably well for 6 to 8 hours. Unfortunately, patient developed a decreased appetite as well as nausea and vomiting thereafter. On 10/24/2019, patient presented to the emergency department with considerable left flank and rectal pain. The CT scan suggested persistent mild right hydronephrosis and a large amount of stool in the colon and rectum suggesting constipation. Mildly prominent loops of small bowel with air-fluid levels were identified, likely secondary to this constipation. The patient was admitted to the hospital and treated for underlying constipation. Ultimately, he achieved resolution by 10/25/2019. He was discharged home with a good bowel regimen. The patient states he did reasonably well until approximately 5 a.m. this morning. At that time, he awoke again with right flank pain. He describes the pain as being very similar to his previous episode. He had associated nausea but no vomiting. He had a Simpson catheter in with persistent hematuria. Because of his recurrence of pain, patient was directed to the emergency department. Evaluation once again was pursued. A new obstructing stone was noted in the proximal to mid right ureter with moderate right hydronephrosis. Pain management was attempted in the emergency department, although with moderate success. Patient will be admitted to the hospital for full evaluation and surgical management. PAST MEDICAL HISTORY: 1. History of abnormal skin examination with multiple actinic keratoses. 2. Adrenal insufficiency. 3. Rankin esophagus. 4. Benign prostatic hypertrophy. 5. History of C7 aneurysmal bone cyst. 6. Bronchiectasis. 7. Chronic renal insufficiency with creatinine ranging between 1.3 and 1.9. 8. Diverticulosis. 9. History of seizure disorder diagnosed after craniotomy and resection of a large lymphoma in 2009. 10. Reflux disease. 11. Hypertriglyceridemia. 12. Hearing loss. 13. Hyperlipidemia. 14. Hypogammaglobulinemia. 15. Hypothyroidism. 16. Irritable bowel syndrome. 17. History of acute traumatic right MCL tear in 2013. 18. History of stage IV mantle cell lymphoma diagnosed in 1999. He is status post chemotherapy followed by stem-cell transplantation in [place]. A recurrence was noted in 2009. He is status post neurosurgical intervention by Dr. Lopez followed by chemotherapy, XRT, and repeat stem-cell transplantation. Associated complications have included seizure disorder, DVT/PTE, and hemolytic anemia. 19. Elevated MCV likely secondary to chemotherapeutic intervention. 20. Tobacco use between the ages of 17 and 72. 21. Obstructive sleep apnea. 22. Osteoarthritis. 23. Overweight. 24. History of a large right renal cyst. CURRENT MEDICATIONS: 1. Albuterol nebulizer twice daily. 2. Atorvastatin 80 mg at bedtime. 3. Azithromycin 250 mg 3 times weekly. 4. Bentyl 10 mg 3 times daily. 5. Calcium plus vitamin D 2 tablets twice daily. 6. Calquence 100 mg twice daily. 7. Centrum Silver 1 tablet daily. 8. Doxycycline 100 mg daily. 9. Eliquis 5 mg twice daily. 10. Fludrocortisone 1 mg at bedtime. 11. Folic acid 1 mg daily. 12. Hydrocortisone 20 mg in the morning and 10 mg at bedtime. 13. [place] 0.5/0.4 daily. 14. Lasix 20 mg daily. 15. Keppra 250 mg twice daily. 16. Lomotil 1 tablet twice daily as needed. 17. Metamucil daily as needed. 18. Mucinex DM twice daily. 19. Pepcid 20 mg twice daily. 20. Potassium chloride 20 mEq 3 times daily. 21. Low magnesium twice daily. 22. Valtrex 500 mg daily. 23. Vitamin B12 1000 mcg IM monthly. ALLERGIES: Patient answered no known drug allergies. SOCIAL HISTORY: The patient smoked 1 cigar per day for 15 years followed by 1 pipe day for 10 years. He stopped in January 2017. He has approximately 4 alcoholic drinks per week. He denies illicit drug use. He is a retired radiologist. He enjoys hunting, fishing, and golfing. He exercises intermittently. FAMILY HISTORY: Patient's father passed at age 64 secondary to complications of CLL. Patient's mother passed at age 95 secondary to complications of "old age." She had a history of arthritis and dementia. REVIEW OF SYSTEMS: A 12-point review of systems was performed. Pertinent positives and negatives were noted in history of present illness. PHYSICAL EXAMINATION: VITAL SIGNS: Temperature 98.1 degrees, heart rate 74, respirations 16 blood pressure is 129/66. GENERAL: Well nourished, well developed in no acute distress. HEENT: Normocephalic, atraumatic. Pupils equal, round, reactive to light. Extraocular muscles intact. Sclerae anicteric. [place] conjunctivae. Oral and nasopharynx clear without exudate. NECK: Supple. No lymphadenopathy. No thyromegaly. No bruits auscultated. CARDIOVASCULAR: Regular rate and rhythm. No significant murmurs, rubs, or gallops. PULMONARY: Rhonchi bilateral bases unchanged from previous. Adequate air movement. ABDOMEN: Soft, nontender, nondistended. Positive bowel sounds. EXTREMITIES: Moves all extremities well. No significant clubbing, cyanosis, or edema. DERMATOLOGIC: Evaluation reveals no evidence of rash. LABORATORY DATA: White blood cell count 10.23, hemoglobin 13.2, hematocrit 42.2, platelet count 314,000, sodium 146, potassium 4.0, chloride 112, bicarb 20, BUN 26, creatinine 2.2, glucose 101, calcium 9.1. ASSESSMENT AND PLAN: A 74-year-old white male with a very complicated past medical history presents for evaluation of intractable right flank pain. Unfortunately, over the course of the last 2 weeks, patient has had symptomatic ureterolithiasis on the right with postoperative course complicated by intractable constipation and urinary retention. The patient again presents with similar symptoms with CT scan findings confirming another obstructing stone. Patient will be admitted to the hospital for full evaluation and management. 1. Admit to General Medicine. 2. Symptomatic ureterolithiasis--Unfortunately, patient has had 2 episodes over the course of the last couple of weeks. Dr. Ya has been consulted. For now, we will treat patient with pain management. The patient likely will undergo surgical intervention this evening. 3. Acute on chronic kidney disease--Patient's baseline creatinine is between 1.4 and 1.9. Creatinine today is 2.2. We will treat patient with IV hydration. 4. Intractable nausea--This is secondary to his symptomatic ureterolithiasis. We will treat patient with as needed Zofran. 5. Urinary retention--The patient does have a Simpson catheter intact. Plan was for this to be removed next week in Dr. Ya's office. We will defer further management to him. He likely will require this as an outpatient further. 6. Adrenal insufficiency--The patient was provided a dose of IV hydrocortisone in the emergency department. We will continue fludrocortisone and oral hydrocortisone once his surgery has been completed. 7. Reflux disease/Rankin esophagus--We will continue patient on Pepcid therapy. 8. Anticoagulation--Patient's Eliquis has been held. We will resume this once able per Dr. Ya. 9. Mantle cell lymphoma--We will continue patient on Calquence therapy. 10. Hyperlipidemia/hypertriglyceridemia--We will continue patient on atorvastatin therapy. 11. Fluid, electrolytes, nutrition--We will monitor electrolytes. Normal saline at 75 mL an hour. N.p.o. for now. 12. Prophylaxis--Patient's Eliquis will be held but will be resumed once able. cc: Rishabh Garza MD
[2019-10-29 05:46] LABS: BASO# 0.01 X1000 (0.0-0.2); BASO% 0.1 % (0.0-0.8); EOS# 0.01 X1000 (0.0-0.7); EOS% 0.1 % (0.0-10.0); HEMATOCRIT 37.4 % (42.0-52.0); HEMOGLOBIN 11.6 g/dL (14.0-18.0); IMM GRAN# 0.02 X1000 (0.0-0.04); IMM GRAN% 0.2 % (0.0-0.5); LYMPH# 0.82 X1000 (1.2-3.4); LYMPH% 8.5 % (20.5-51.1); MCH 31.8 PG (27-31); MCV 102.5 FL (81-99); MONO% 9.4 % (1.7-9.3); MPV 10.3 FL (7.4-10.4); NEUT# 7.86 X1000 (1.4-6.5); NEUT% 81.7 % (42.2-75.2); PLT 285 X1000 (130-400); RBC 3.65 XMIL (4.7-6.1); RDW 14.6 % (11.5-14.5); WBC 9.62 X1000 (4.8-10.8)
[2019-10-29 06:10] LABS: ALB/GLOB RATIO 1.1; ALBUMIN 2.6 g/dL (3.5-5.0); CALCIUM 8.6 mg/dL (8.8-10.2); CREATININE 1.9 mg/dL (0.7-1.2); POTASSIUM 4.3 mmol/L (3.5-5.1); TOTAL BILIRUBIN 0.15 mg/dL (0.20-1.00); TOTAL PROTEIN 4.9 g/dL (6.3-8.3)
[2019-10-29] MEDS ORDERED: SYNTHROID PO SCH (07:00)
[2019-10-29] MEDS: ALBUTEROL NEB INH SCH (08:13)
[2019-10-29 08:35] VITALS: BP 133/57
[2019-10-29] MEDS ORDERED: VALTREX PO SCH (09:00)
[2019-10-29] MEDS ORDERED: CENTRUM SILVER PO SCH (09:00)
[2019-10-29] MEDS ORDERED: CORTEF PO SCH (09:00)
[2019-10-29] MEDS ORDERED: DOXYCYCLINE PO SCH (09:00)
[2019-10-29] MEDS ORDERED: AVODART PO SCH (09:00)
[2019-10-29] MEDS: CITRACAL + D PO SCH (09:03)
[2019-10-29] MEDS: KLOR-CON PO SCH (09:03)
[2019-10-29] MEDS: PEPCID PO SCH (09:03)
[2019-10-29] MEDS: BENTYL PO SCH (09:03)
[2019-10-29] MEDS: KEPPRA PO SCH (09:04)
[2019-10-29] MEDS: MUCINEX DM PO SCH (09:04)
[2019-10-29] MEDS: SLOW-MAG PO SCH (09:04)
--- NOTE | 2019-10-29 11:04 | OPERATIVE NOTE ---
PROCEDURE DATE: 10/28/2019 PREOPERATIVE DIAGNOSES: 1. Right flank pain. 2. Right ureteral stone. 3. Right renal stone. 4. Right renal cyst. POSTOPERATIVE DIAGNOSES: 1. Right flank pain. 2. Right ureteral stone. 3. Right renal stone. 4. Right renal cyst. PROCEDURE PERFORMED: 1. Cystoscopy. 2. Right ureteroscopy with laser lithotripsy. 3. Stone basket extraction. 4. Right ureteral stent placement. SURGEON: Christopher Ya MD. CONTRACTS SPECIALIST: None. COMPLICATIONS: None. BLOOD LOSS: 5 mL. DRAINS: 1. 6 x 26 cm right ureteral stent. 2. A 16-Portuguese Simpson catheter. ANESTHESIA: LMA. SPECIMENS REMOVED: Right ureteral and renal stones. 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 The patient was found to have a stone present within the right ureter. He was taken emergently to the operating room and had removal of right ureteral stone and attempted removal of renal stones. However, due to patient being on Eliquis, it was a difficult visualization and we could not get within the kidney itself. The patient has a large right renal cyst which distorted the anatomy and the patient's ureter on the right side all the way to the left side of the aorta. The patient has known right renal cysts for a number years now and it is progressively large. Seems to be distorting his anatomy, the kidney related to his right stone formation. The patient came into the emergency room this afternoon complaining of right flank pain. The patient was found to have a 5 mm stone present in the proximal ureter with associated hydronephrosis as well as right renal stones. I talked with him and recommended cystoscopy, right ureteroscopy, removal of stones. Risks, benefits, alternatives of surgical procedure discussed with the patient and patient elected to proceed. DESCRIPTION OF PROCEDURE: After informed consent was obtained, the patient was brought to the operating room, placed on the table in the supine position. The patient received preoperative antibiotics and he underwent LMA placement. He was positioned into a dorsal lithotomy position, was prepped and draped in usual sterile fashion. A preoperative time-out was then performed with all parties in the presence of surgical staff. At which point I inserted a 21- Portuguese cystourethroscope through the urethra showing normal caliber urethra with no evidence of any papillary lesions or stricture disease. The patient had an enlarged prostate with a small amount of obstruction and a small median lobe. Once inside the bladder, the entirety of the bladder was inspected with erythema of the bladder likely related to recent indwelling catheter. No obvious papillary lesions seen. There were trabeculations and cellules seen throughout the bladder. Ultimately, I was able to see the right ureteral orifice and passed a ZIPwire through the scope and into the collecting system itself. The patient's collecting system and ureter took a significant turn going from the right side of his body all the way to the left side of his spinal column and then back into the kidney. The wire was left in place and a second wire was then passed through the ureter into the kidney itself. Both wires were left in place and using the 2nd wire, a flexible ureteroscope was then advanced into the distal portion of the ureter. This allowed for easy passage of the ureteroscope up to the side of the stone and this was slightly large and impacted. A small amount of sediment returned from the renal stone itself. Using a 200 micron fiber the stone was then fragmented easily in several pieces. These were grasped using a Jacob basket and dropped in the bladder for later retrieval. Multiple smaller stones were seen adjacent to this. The stones were a submillimeter in size and over 40 to 60 of them were seen in the ureter itself. These were tried to be grasped but too small and could not be grasped by our basket. Tried to irrigate them out but still we were unable to remove the stones due to the positioning of the ureter. Ultimately, I was able to advance the ureteroscope all the way into the collecting system itself. This was seen fluoroscopically in the midportion of his abdomen. Then using a Jacob basket several larger stones were then extracted and pulled into the mid ureter as they were fragmented to multiple small pieces. These pieces were extracted. Several passes up and down the ureter were performed and approximately 5 large stones were completely removed after being fragmented with the laser. Multiple fragments were obtained from the stones and fragmented very easily. They were quite friable. They also would break inside the actual basket itself once grasped. Multiple small stones were seen in the lower pole of the kidney and these were attempted to be irrigated out, however, they were unable to be completely removed due to their small size and irrigated through our channel. Multiple passes of the ureteroscope up and down the ureter were performed until all large fragments were retrieved and dropped in the bladder. I could not see any significant fragments that remained at which point the ureteroscope was slowly withdrawn. It showed a relatively normal ureter with no significant edema. ZIPwire was left in place in the back with the cystourethroscope and a 6 x 26 cm stent was advanced over the wire into the collecting system endoscopically visualized in the bladder with good drainage seen through and around the stent. All stone fragments were retrieved from the bladder and sent for analysis. The patient was then awoken and was taken to recovery in stable condition. DISPOSITION: Patient will be admitted to the floor to Dr. Garza' service to hopefully be discharged in the coming days. cc: MD Rishabh Bedoya MD MTDD
--- NOTE | 2019-10-29 13:10 | PROGRESS NOTE ---
DATE: 10/29/2019 SUBJECTIVE: Postoperative day 1 from cystoscopy with right ureteroscopy, lithotripsy and stone basket extraction with right ureteral stent placement. The patient had several stones within the ureter and renal collecting system, which were removed yesterday. Patient still has a large amount of small debris like stones present throughout the collecting system and ureter. They were too small to even extract and were complicated by his renal anatomy due to his large renal cyst. The patient feels much better today. Denies any significant pain. No nausea or vomiting. He is tolerating oral intake. His catheter has been draining clear yellow urine and he is ready to be discharged. PHYSICAL EXAMINATION: Vital Signs: Temperature 97.8 degrees, heart rate 72, blood pressure 133/57, O2 saturation 98% on room. General: No acute distress. Resting comfortably in bed. Alert and oriented x3. Respiratory: Good respiratory effort without audible wheezing or rales. Abdomen: Soft, nontender, nondistended. : No suprapubic tenderness. No CVA tenderness. Urethral catheter in place draining clear, yellow urine. LABS: White blood cell count 9.6, hemoglobin 11.6, hematocrit 37.4, platelets 285,000. Sodium 139, potassium 4.3, chloride 105, bicarb 22, BUN 22, creatinine 1.9, glucose 119. 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 The patient had a large amount of stones present throughout the collecting system with multiple small stones in the ureter as well as larger stones that were extracted from the right ureter and right collecting system. Several of these had to be broken up into smaller pieces and extracted. These appeared to be likely uric acid stones due to their consistency and very friable nature. The patient's pain is much improved today. The patient has a very large renal cyst and likely needs a cyst decortication to help reinstate normal renal anatomy, because I think that this is why he continues to develop stones from this kidney. I think I removed a large portion of his stones today, but I know that he probably still has smaller stones present. The patient continues with indwelling catheter and ureteral stent. I talked with him and his previously about undergoing a procedure to treat his renal cyst and would plan to remove his stent at that time. Due to scheduling, we will have to schedule this potentially either this Thursday or the following Thursday. We will relay the planning with the patient and coordinate appropriately. The patient is on Eliquis, would hold for three days prior. The patient will stop his Eliquis on Thursday night in preparation for possible surgery on Thursday. However, I think it is going to be difficult to schedule this week but will keep an open dialogue with the patient regarding this. We will continue to monitor from urologic standpoint. Please call with questions or concerns. cc: MD Rishabh Bedoya MD MTDAyla
--- NOTE | 2019-10-29 20:13 | DISCHARGE SUMMARY ---
ADMISSION DATE: 10/28/2019 DISCHARGE DATE: 10/29/2019 ADMISSION DIAGNOSIS: Intractable right flank pain. DISCHARGE DIAGNOSES: 1. Symptomatic ureterolithiasis. 2. Acute on chronic kidney disease, improved. 3. Intractable nausea, improved. 4. Urinary retention, present on arrival. 5. Adrenal insufficiency, present on arrival. 6. Reflux disease/Rankin esophagus, present on arrival . 7. Anticoagulation, present on arrival. 8. Mantle cell lymphoma, present on arrival . 9. Hyperlipidemia/hypertriglyceridemia, present on arrival. CONSULTATIONS: Dr. Ya with Urology was consulted for further evaluation and management of symptomatic ureterolithiasis. PROCEDURES: 1. A ureteroscopy, laser lithotripsy and stone extraction with right ureteral stent was performed on 10/28/2019. 2. Renal CT was performed on 10/28/2019 which revealed new obstructing stone in the proximal-mid right ureter. Moderate hydronephrosis. Urinary bladder wall thickening, indeterminate. HISTORY AND PHYSICAL EXAMINATION: See admit note. PHYSICAL EXAMINATION PRIOR TO DISCHARGE: Temperature 97.8 degrees, heart rate 72, respirations 19, blood pressure is 133/57. General: Well nourished, well developed, no acute distress. Cardiovascular: Regular rate and rhythm. No significant murmurs, rubs, or gallops. Pulmonary: Crackles and rhonchi at bilateral bases, unchanged from previous. Adequate air movement. Abdomen: Soft, nontender, nondistended. Positive bowel sounds. Extremities: Moves all extremities well. No significant clubbing, cyanosis, or edema. Dermatologic: Evaluation reveals no evidence of rash. LABORATORY DATA: White blood cell count 9.62, hemoglobin 11.6, hematocrit 37.4, platelet count 285,000. Sodium 139, potassium 4.3, chloride 105, bicarb 22, BUN 22, creatinine 1.9, glucose 119, calcium 8.6, total bilirubin 0.15, total protein 4.9, albumin 2.6, alkaline phosphatase 96, AST 17, ALT 22. HOSPITAL COURSE: The patient was admitted as per history and physical examination. Hospital course per condition as follows. ASSESSMENT AND PLAN: 1. Symptomatic ureterolithiasis-upon admission, patient was noted to have significant right flank pain. Full evaluation was pursued. CT scan confirmed symptomatic ureterolithiasis. Dr. Ya was consulted. The patient was placed on intravenous fluids and treated symptomatically. Patient was taken to the operating room on the evening of arrival. Procedure was performed as described above. The patient's postoperative course has been largely uncomplicated. Patient will be discharged home with a ureteral stent intact. Plan for surgical intervention on his large right renal cyst will have been made for next Thursday. 2. Large right renal cyst-as above, patient's condition is longstanding, however he is developed increasing episodes of ureterolithiasis. It is suspected that this likely is contributing. We will plan surgical intervention on Thursday if possible. We will address his anticoagulation as below. 3. Acute on chronic kidney disease-patient's baseline creatinine between 1.4 and 1.9. Upon arrival, his creatinine had increased to 2.2. He was treated with IV fluids. With this, on the day of discharge patient's creatinine was 1.9. We will follow this as an outpatient. 4. Intractable nausea-this likely is secondary to symptomatic ureterolithiasis. Patient was treated with as needed intravenous Zofran while hospitalized. At time of discharge, he was tolerating p.o. We will follow this. 5. Urinary retention-this is a recent diagnosis, likely combination of constipation and narcotic pain intervention. The patient presented with a Simpson catheter intact. This remained throughout hospitalization. We will plan to keep this intact until after his surgical intervention for his right renal cyst. We will defer further management to Dr. Ya. 6. Adrenal insufficiency-patient was treated with hydrocortisone and fludrocortisone while hospitalized. He had no evidence of true insufficiency while hospitalized. 7. Reflux disease/Rankin esophagus-patient was continued on Pepcid therapy while hospitalized. Symptoms remain controlled. 8. Anticoagulation-patient's Eliquis was held while hospitalized. We will resume this today. We discussed this in detail. He has a history of deep vein thrombosis and pulmonary thromboembolism in the distant past. At this point, I feel holding his medications prior to his upcoming surgery without Lovenox intervention is most prudent. He will take his last dose of Eliquis tomorrow morning in preparation for surgical intervention on Thursday. 9. Mantle cell lymphoma-patient is currently treated with Calquence therapy. This was continued while hospitalized. We will defer further management to his oncologist. 10. Hyperlipidemia/hypertriglyceridemia-patient was continued on atorvastatin therapy while hospitalized. 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 It has been 6 weeks since he has received immunoglobulin intervention. For this reason, we will check immunoglobulin levels today. We will determine if pursuing immunoglobulin replacement is necessary prior to surgical intervention on Thursday. DISCHARGE CONDITION: Good. DISPOSITION: Discharge to home. MEDICATIONS: 1. Calquence 100 mg twice daily. 2. Acetaminophen 650 mg every 6 hours as needed. 3. Albuterol nebulizer twice daily. 4. Atorvastatin 80 mg at bedtime. 5. Azithromycin 250 mg 3 times weekly. 6. Calcium plus vitamin D 2 tablets twice daily. 7. Bentyl 10 mg 3 times daily. 8. Lomotil 1 tablet twice daily as needed. 9. Doxycycline 100 mg daily. 10. Avodart 0.5 mg daily. 11. Famotidine 40 mg twice daily. 12. Fludrocortisone 0.1 mg at bedtime. 13. Mucinex DM twice daily. 14. Hydrocortisone 20 mg in the morning and 10 mg in the evening. 15. Keppra 250 mg twice daily. 16. Levothyroxine 88 mcg daily. 17. Slow-Mag 1 tablet twice daily. 18. Multivitamin daily. 19. MiraLAX 17 g in 8 ounces of juice twice daily as needed. 20. Potassium chloride 20 mEq 3 times daily. 21. Julissa-Colace 1 tablet twice daily as needed. 22. Tamsulosin 0.4 mg 2 tablets at bedtime. 23. Valtrex 500 mg daily. 24. Eliquis 5 mg twice daily. He has been instructed that his last dose prior to surgical intervention will be on Thursday morning. He is to hold this until after surgical intervention planned on Thursday. 25. Furosemide 20 mg daily. 26. [place] 7.5/325 one tab every 6 hours as needed. 27. Macrobid 100 mg twice daily for 7 days. FOLLOWUP: The patient is to follow up with me in approximately 1 to 2 weeks. Patient is follow up with Dr. Ya as arranged. cc: Rishabh Garza MD
--- NOTE | 2019-10-31 09:08 | Diag Imaging Result Doc PS360 ---
EXAM: FLUOROSCOPY CYSTO INDICATION: right ureteral stone TECHNIQUE: COMPARISON: None. FINDINGS: Eight spot fluoroscopic images were provided, which were performed during right ureteral stent placement by Dr. Christopher Ya. The right ureter is significantly displaced toward the left. This appears to be due to a giant right renal cyst that can be seen on previous CT. On the final image, the newly placed right ureteral stent is identified in the expected position. IMPRESSION: As above. Please correlate with live fluoroscopic imaging. Electronically signed by Sebastian Ballesteros 10/31/2019 9:06 AM
== END 2019-10-29 10:36 | disposition home or self-care (01) | DRG 660 ==
LOC: ED 08:02 → EDIPHOLD 12:32 → 1N 14:51
PROVIDERS: ADMIT Internal Medicine; ATTEND Internal Medicine

== ENCOUNTER 2019-11-09 09:55 | Day surgery (SDC) ==
--- NOTE | 2019-11-08 20:38 | HISTORY AND PHYSICAL ---
CHIEF COMPLAINT: Right flank pain, right renal cyst. 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 The patient underwent cystoscopy and removal of stone on 10/19/2019 and had recurrence of right stone disease on 10/28/2019 and had repeat right ureteroscopic procedure performed at that time. The patient was on Eliquis and continues to have episodes of intermittent flank pain due to his cyst as well as passage of stones. The patient underwent ureteroscopy and removal of stones on 10/28/2019 has kept stent in since then, talking with him I recommended drainage of his right renal cyst to help and reposition his kidney due to the abnormal anatomy of his cyst leading to distorted of the renal drainage pattern as his ureter goes in the right side all the way across the left side of his body, likely kinking off the ureter and leading to difficulty with stone passage and recurrent stone formation. The patient elected to proceed with surgical intervention regarding removal of right renal cyst. PAST MEDICAL HISTORY: 1. Baxter disease. 2. Rankin esophagus. 3. BPH. 4. Bronchiectasis. 5. Chronic renal insufficiency. 6. Diverticulosis. 7. Seizure disorder. 8. Hypertriglyceridemia . 9. Hyperlipidemia. 10. Hypogammaglobulinemia. 11. Hypothyroidism. 12. Irritable bowel. 13. Stage IV mantle cell lymphoma. 14. Obstructive sleep apnea. 15. Tobacco use. 16. Large right renal cyst. 17. Osteoarthritis. PAST SURGICAL HISTORY: 1. Meniscus repair. 2. Stem cell transplant x2. 3. Craniotomy for resection lymphoma . 4. Colonoscopy. 5. Ureteroscopy and removal of stones x2. ALLERGIES: Naproxen and iodine contrast media. HOME MEDICATIONS: 1. Albuterol. 2. Atorvastatin. 3. Azithromycin. 4. Bentyl. 5. Calcium with vitamin D . 6. Calquence 100 mg b.i.d. 7. Centrum Silver. 8. Doxycycline . 9. Eliquis 5 mg b.i.d. 10. Fludrocortisone 1 mg at bedtime. 11. Folic acid. 12. Hydrocortisone 20 mg in the morning and 10 mg at nighttime. 13. Flomax 0.8 mg . 14. Dutasteride 0.5 mg. 15. Lasix 20 mg daily. 16. Keppra 250 mg b.i.d. 17. Lomotil b.i.d. 18. Metamucil . 19. Mucinex. 20. Pepcid. 21. Potassium chloride 20 mEq 3 times daily. 22. Valtrex. 23. Vitamin D . SOCIAL HISTORY: Former smoker, drinks alcohol weekly. Denies any illicit drug use. FAMILY HISTORY: Denies history malignancy. REVIEW OF SYSTEMS: 12 point ROS performed with pertinent positives and negatives in HPI. PHYSICAL EXAM: Temperature 97.8 degrees, heart rate 72, blood pressure 133/57, oxygen saturation 98% on room air. GENERAL: No acute distress resting comfortably in bed alert and oriented x3. RESPIRATORY: Good respiratory effort without audible wheezing or rales. HEENT: Normocephalic, atraumatic. Pupils equal, round, reactive to light. NECK: Trachea midline with no obvious lesions. CARDIOVASCULAR: Regular rate, rhythm. ABDOMEN: Soft, nontender, nondistended. No palpable masses. : No suprapubic tenderness. No CVA tenderness. SKIN: Multiple actinic keratosis. NEUROLOGIC: Gross motor and sensory intact. MUSCULOSKELETAL: Moving all extremities. IMAGING: CT abdomen pelvis on 10/28/19 reviewed which shows a large right renal cyst as well as several stones present in the lower pole of the kidney as well as right ureteral stone. 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 He has undergone 2 ureteroscopy and removal of right stones both in the ureter as well as the right kidney. The patient continues to have a large renal cyst distorting the renal anatomy. Talking with him I recommended drainage of the cyst to try to reposition his kidney back to a normal position. Talked with him I recommended performing this robotically and doing a cyst decortication and partial nephrectomy. Discussed procedure at length with him and his including risk of bleeding, infection, damage surrounding structures, inability to completely remove the cyst and recurrence of cyst and kidney stone formation. Would also plan to do ureteroscopy to remove any residual stones as he had multiple small stones in his ureter on most recent ureteroscopy which I think were difficult to drain due to his anatomy. Will plan to try to drain out and remove as many stones as possible and would plan to remove his stent in several days after his procedure to optimize drainage of the kidney. The patient has been holding his Eliquis and will restart when appropriate postoperatively. Will take to the operating room on 11/09/2019 for procedure. cc: Christopher Ya MD MTDD
[2019-11-09] MEDS ORDERED: QUELICIN (DOSE) ONE (10:23)
[2019-11-09] MEDS ORDERED: REGLAN ONE (10:25)
[2019-11-09] MEDS ORDERED: KEFZOL 1 GM/D5W 2 GM/100 ML IVPB ONE (10:25)
[2019-11-09] MEDS ORDERED: LR 1,000 ML ONE (10:25)
[2019-11-09] MEDS ORDERED: PEPCID ONE (10:25)
[2019-11-09] MEDS ORDERED: FENTANYL ONE (10:41)
[2019-11-09] MEDS ORDERED: DIPRIVAN 1% ONE (10:41)
[2019-11-09] MEDS ORDERED: ROBINUL ONE ×2 (10:43→12:08)
[2019-11-09] MEDS ORDERED: NORCURON ONE (10:43)
[2019-11-09] MEDS ORDERED: STERILE WATER INJ. ONE (10:43)
[2019-11-09] MEDS ORDERED: XYLOCAINE-MPF 2% ONE (10:43)
[2019-11-09] MEDS ORDERED: NEO-SYNEPHRINE ONE (11:45)
[2019-11-09] MEDS ORDERED: SODIUM CHLORIDE 0.9% 10 ML ONE (11:45)
[2019-11-09] MEDS ORDERED: EPHEDRINE ONE (11:58)
[2019-11-09] MEDS ORDERED: SENSORCAINE-MPF 0.5%/EPI 1:200,000 ONE (12:00)
[2019-11-09] MEDS ORDERED: ZOFRAN ONE (12:08)
[2019-11-09] MEDS ORDERED: NEOSTIGMINE ONE (12:09)
[2019-11-09] MEDS ORDERED: OFIRMEV 1000 MG/ISOTONIC SOLN 1,000 MG/100 ML BOTTLE ONE (12:09)
[2019-11-09] MEDS ORDERED: SOLU-CORTEF ONE (12:12)
[2019-11-09] MEDS ORDERED: NORCO-7.5 ONE (15:16)
[2019-11-09] MEDS: DILAUDID ONE ×2 (15:21→15:24)
[2019-11-09] MEDS ORDERED: FLOMAX ONE (16:22)
[2019-11-09] MEDS ORDERED: SODIUM CHLORIDE 0.9% IV PRN (16:50)
[2019-11-09] MEDS ORDERED: MORPHINE IV PRN (16:56)
[2019-11-09] MEDS ORDERED: LABETALOL IV PRN (17:00)
[2019-11-09] MEDS ORDERED: D5 1/2 NS 1,000 ML IV SCH (17:00)
[2019-11-09] MEDS ORDERED: ZOFRAN IV PRN (17:00)
[2019-11-09] MEDS ORDERED: NORCO-7.5 PO PRN (17:00)
--- NOTE | 2019-11-09 17:04 | Diag Imaging Result Doc PS360 ---
EXAM: Fluoroscopy- C-ARM INDICATION: R SIDE STONES TECHNIQUE: COMPARISON: None. FINDINGS: Six spot fluoroscopic images were provided which were performed during right ureteral stone retrieval and right ureteral stent placement by Dr. Christopher Ya. On the final images, the newly placed right ureteral stent is identified in the expected position. IMPRESSION: As above. Please correlate with live for scopic imaging. Electronically signed by Sebastian Ballesteros 11/09/2019 5:01 PM
[2019-11-09] MEDS ORDERED: LOMOTIL PO PRN (17:49)
[2019-11-09] MEDS ORDERED: TYLENOL PO PRN (17:49)
[2019-11-09] MEDS ORDERED: BENTYL PO PRN (17:49)
[2019-11-09] MEDS ORDERED: ZITHROMAX PO SCH (18:00)
[2019-11-09 18:26] LABS: URINE SOURCE CATH
[2019-11-09 18:33] LABS: BILIRUBIN URINE NEGATIVE (NEGATIVE); BLOOD URINE MODERATE (NEGATIVE); COLOR STRAW; GLUCOSE URINE NEGATIVE (NEGATIVE); KETONE URINE NEGATIVE (NEGATIVE); LEUKOCYTES URINE NEGATIVE (NEGATIVE); NITRITE URINE NEGATIVE (NEGATIVE); PROTEIN URINE NEGATIVE (NEGATIVE); SP GRAVITY URINE 1.009; TURBIDITY URINE CLEAR (CLEAR); UROBILINOGEN URINE NORMAL (NORMAL)
[2019-11-09 18:35] LABS: UR EPITHELIAL CELLS <10 /HPF (<10); URINE BACTERIA NEGATIVE /HPF; URINE RBC 20-40 /HPF (<10); URINE WBC <10 /HPF (<10)
[2019-11-09] MEDS: ALBUTEROL NEB INH SCH (20:01)
[2019-11-09] MEDS ORDERED: FLORINEF PO SCH (21:00)
[2019-11-09] MEDS ORDERED: FLOMAX PO SCH (21:00)
[2019-11-09] MEDS ORDERED: CORTEF PO SCH (21:00)
[2019-11-09] MEDS ORDERED: LIPITOR PO SCH (21:00)
--- NOTE | 2019-11-09 21:52 | CONSULTATION ---
DATE OF CONSULTATION: 11/09/2019 REQUESTING PHYSICIAN: Christopher Ya MD CHIEF COMPLAINT: Intractable abdominal discomfort and treatment of multiple medical illnesses. HISTORY OF PRESENT ILLNESS: A 74-year-old white male with a complicated past medical history presents for evaluation of above-mentioned symptoms. Pertinent history of present illness began on 10/09/2019. At that time, patient presented to the emergency department with acute onset right flank pain. The patient was found to have obstructing ureterolithiasis requiring ureteroscopy and basket stone removal and subsequent stent placement. While hospitalized, patient was noted to have urinary retention. A urinary catheter was placed. The patient was discharged home on 10/20/2019. While home, patient did reasonably well. He was seen in Dr. aY's office on 10/21/2019, and at that time, Simpson catheter was removed. On 10/22/2019, the patient self removed his ureteral stent. Soon after that, patient developed a decrease in appetite with associated nausea and vomiting. On 10/24/2019, patient presented to the emergency department with considerable left flank pain and rectal pain. CT scan suggested a mild right hydronephrosis and a large amount of stool in the colon and rectum suggesting constipation. Prominent loops of small bowel and air-fluid levels were identified. The patient was admitted to the hospital and treated for underlying constipation. Ultimately, he achieved resolution on 10/25/2019. Patient was discharged home with a good bowel regimen. Patient did reasonably well until 10/28/2019. At that time, he presented again with right flank pain. Evaluation in the emergency department revealed a new obstructing stone noted in the proximal to mid right ureter and moderate right hydronephrosis. The patient was taken for a cystoscopy, right ureteroscopy with laser lithotripsy, stone basket extraction, and right ureteral stent placement. He tolerated this quite well. On 10/29/2019, he was discharged home. During these evaluations, patient was found to have a large right renal cyst. Followup with Dr. Ya was arranged and drainage of the cyst was scheduled for today. The patient tolerated this procedure quite well. Postoperatively, patient was noted to have increasing drowsiness, but overall was doing quite well. Because of the drowsiness and multiple medical conditions, overnight observation was felt most appropriate. While I was sitting on the fourth floor, nursing staff alerted me to increasing abdominal discomfort. The patient's family requested my attendance. A bladder scan suggested urinary retention. A Simpson catheter was placed. After the Simpson catheter was placed, patient's pain improved considerably. The patient does continue to have some drowsiness and a postsurgical abdominal pain but no significant nausea, vomiting, shortness of breath or chest discomfort. OBJECTIVE: Vital signs: Temperature 97.3 degrees, heart rate 103, respirations 20, blood pressure is 175/76. General: Well nourished, well developed, no acute distress. HEENT: Normocephalic, atraumatic. Pupils equal, round, reactive to light. Extraocular muscles intact. Sclerae anicteric. [place] conjunctivae. Oral and nasopharynx clear without exudate. Neck: Supple. No lymphadenopathy. No thyromegaly. No bruits auscultated. Cardiovascular: Regular rate and rhythm. No significant murmurs, rubs, or gallops. Pulmonary: Clear to auscultation bilaterally. Abdomen: Soft, postoperative tenderness, nondistended, decreased but present bowel sounds. Extremities: Moves all extremities well. No significant clubbing, cyanosis, or edema. Dermatologic: Evaluation reveals no evidence of rash. Neurological examination: Cranial nerves 2 through 12 grossly intact. Motor and sensory grossly intact. Psychologic examination: Appropriate. LABORATORY DATA: None. ASSESSMENT AND PLAN: A 74-year-old white male with a very complicated past medical history presents in consultation by nursing staff the patient's family for acute urinary retention. A Simpson catheter was placed with improvement in his overall condition. Dr. Ya is aware. Multiple medical conditions will also be managed as noted below. 1. Thank you for this consultation. 2. Acute urinary retention--As above, bladder scan suggested significant urinary retention. I suspect this is secondary to a combination of Dilaudid intervention as well as recent urologic intervention. We will continue patient on his home regimen of Flomax. We will defer timing of discontinuing Simpson catheter to Dr. Ya. I have asked patient and family to limit the amount of Dilaudid as this likely is contributing. 3. Chronic kidney disease--The patient has longstanding disease with creatinine ranging between 1.4 and 1.9. We will check a creatinine in the a.m. 4. Adrenal insufficiency--At this point, the patient does not appear to be having any evidence of insufficiency. We will continue his home regimen of fludrocortisone and hydrocortisone. 5. Reflux disease--We will continue patient on Pepcid therapy. 6. Anticoagulation--Patient's Eliquis has been held until Thursday. We will follow this. 7. Mantle cell lymphoma--Patient is currently being treated with Calquence therapy. We will ask the patient's family to resume this in the a.m. 8. Hyperlipidemia/hypertriglyceridemia--We will continue patient on atorvastatin therapy. 9. Fluid, electrolytes, nutrition. We will monitor electrolytes, D5 half normal saline at 75 mL an hour. Regular diet, advance as tolerated. 10. Prophylaxis. We will resume Eliquis as noted on Thursday. We will place patient on SCDs. cc: MD Christopher Gamble MD
--- NOTE | 2019-11-09 22:28 | OPERATIVE NOTE ---
PROCEDURE DATE: 11/09/2019 PREOPERATIVE DIAGNOSES: 1. Large right renal cyst. 2. Right ureteral and renal stones. POSTOPERATIVE DIAGNOSES: 1. Large right renal cyst. 2. Right ureteral and renal stones. PROCEDURE PERFORMED: 1. Robotic-assisted laparoscopic partial nephrectomy for large right renal cyst. 2. Cystoscopy with right ureteroscopy, stone basket extraction. 3. Right ureteral stent exchange. SURGEON: Christopher Ya MD MARKETING CAMPAIGN ANALYST: None. COMPLICATIONS: None. BLOOD LOSS: 10 mL DRAINS: A 6 x 26 cm right ureteral stent. SPECIMENS: 1. Removed right cystic lesion. 2. Right renal stones. ANESTHESIA: Endotracheal intubation. INDICATION: Mr. Mcdonald is a 74-year-old who presented on 2 separate occasions with obstructing right ureteral stones, related to large right renal cyst and abnormal renal drainage. The patient had an approximately 20 cm cyst of the right kidney, leading to distorted anatomical position of the kidney and positioning within the right mid abdomen, with ureter draining to the left side of the aorta prior to returning to the right portion of the pelvis. The patient has had several difficult ureteroscopies and stone extractions due to the cyst, which changes the anatomical trajectory of his ureter and kidney, leading to persistent passage of stones. I tried to make him stone free, but due to his cyst I think this is leading to continued drainage difficulties of the right kidney. In talking with him his , I recommended a partial nephrectomy with resection of cysts and repeat right ureteroscopy for removal of stones. Risks, benefits and alternatives of the procedure including bleeding, infection, damage to surrounding structures, recurrent of cyst, renal damage, ureteral damage, or inability to preformed the surgery were discussed with the patient and his , and they elected to proceed. DESCRIPTION OF PROCEDURE: After informed consent was obtained, the patient was brought to the operating room and placed on the table in supine position. The patient received preoperative antibiotics and underwent endotracheal intubation. He was then positioned to a lateral decubitus position with right side up. The patient was positioned and all pressure points were adequately padded. He was adhered to the bed with silk tape and adherent straps. He was tested at the extremes of rotation, and was well positioned. At this point the patient was then prepped and draped in the usual sterile fashion. A preoperative time-out was then performed, with all parties in agreement including anesthesia, surgical and nursing staff. The abdomen was then inspected and palpable mass was seen in the right upper quadrant. No obvious surgical incisions were seen. At this point a Veress needle was then placed into the abdomen at the umbilicus. A drop test was performed on 2 separate occasions, with good drainage into the abdomen with no succus or blood return. At this point low insufflation with CO2 was begun, with low central pressure was obtained, and this was increased up to high flow. The abdomen was adequately distended and then our incisions were marked and infiltrated with 0.5% Marcaine. We first started by placing our 5 mm assistant program director port in the supraumbilical position, and then placed our camera through this port. This allowed visualization of the abdomen, and a large right renal cyst was seen. At this point our camera port and our 2 robotic trocars were then placed under direct vision. The robotic platform was then docked. Using our monopolar and bipolar devices, we began to dissect overlying Gerota fascia and fat off of the renal cyst itself. The colon was then reflected inferiorly off the cyst and away from the kidney itself. This was reflected medially until adequate visualization of the cyst was seen. No significant adhesions were seen within the abdomen itself. Once the cyst was adequately dissected out, a place was seen within the midportion of the cyst, and then using our monopolar this was cauterized. The cyst was then opened and allowed to deflated, with cyst fluid being removed. Over 2.5 L of fluid were removed from the cyst itself. Once this was completely decreased, I began to excise the cyst down to renal parenchyma, first posteriorly, initially laterally and this was carried to the medial portion of the kidney, dissecting off any residual Gerota fat, being sure to stay above the renal parenchyma. Good dissection of the cyst wall from the parenchyma was seen. The base of the cyst was left adherent to the posterior psoas fascia to allow for adequate stabilization of the kidney against the posterior abdominal wall. As the cyst was removed, a nodular area was seen which was seen previously on CT scan, which appeared to likely be related to dystrophic calcification from the large renal cyst. This was excised with a wide margin. No other nodular areas were seen within the renal cyst. The entirety of the cyst was completely cut away from renal parenchyma and no active bleeding was seen. Arixtra was then used overlying the renal parenchyma and resection bed for hemostasis. Insufflation was decreased down to 3, and no active bleeding was seen. The robotic platform was undocked, and then using a grasper the cyst was able to be extracted through our camera port and was removed intact, and sent for pathology. Insufflation was removed from the abdomen and all of our trocars were completely removed. Incisions were irrigated and closed with Monocryl 4-0. Adhesive was applied overlying these. Following this, the patient was then repositioned in the dorsal lithotomy position and was prepped and draped again. He underwent cystoscopy with a 21-Wolof cystourethroscope. This was advanced into the bladder. Using a flexible grasper, the patient's ureteral stent was removed and a ZIPwire was attempted to pass through the stent itself; however, there was resistance in the proximal curl, likely related to calcifications which did not allow for adequate curling of the stent itself. Ultimately the stent was completely removed. The cystourethroscope was reinserted and the ZIPwire easily passed into the ureteral orifice. It was slightly bullous, related to indwelling stent. Significant trabeculations were seen throughout the bladder, which were stable in appearance. The patient has a slightly enlarged prostate with a high bladder neck. The ZIPwire was left in place and then a PTFE wire was advanced through the ureteral orifice and seen fluoroscopically to go into the kidney. Both wires were left in place. The patient's bladder was completely decompressed and a flexible ureteroscope was advanced through the urethra and into the distal ureter. At this point the PTFE wire was removed and the flexible ureteroscope was easily advanced up into the collecting system itself. This followed a normal trajectory of the ureter, going straight into the kidney itself, with no abnormal trajectory as previously seen on prior ureteroscopy. This allowed for easy visualization of the entirety of the kidney. Several stone fragments were seen in the upper and interpolar areas, most prominent in the upper pole. Multiple small stones which were too small to be grasped were seen here. These were attempted to be irrigated out, and several stones were removed; however, the patient continued to have what appeared to be uric acid stones within the kidney itself. Several larger stones were seen. These were grasped using a Estate Assist basket and then dropped in the bladder for later retrieval. Multiple passes of the ureteroscope up and down the ureter were performed, ensuring decompression of the bladder. Once this was completed, no large stone fragments were seen in the collecting system. Each of the calices were re-evaluated, with no significant stone fragments visualized. The ZIPwire was then left in the upper pole and the ureteroscope was slowly withdrawn, which showed a normal appearance of the ureter with no significant trauma or stones within the ureter itself. The ureteroscope was completely withdrawn. The ZIPwire was then back-loaded through the cystourethroscope and a 6 x 26 cm stent with tether was passed over the wire. Good curl was seen within the collecting system and endoscopically visualized in the bladder. Good drainage seen through and around the stent. The patient's bladder was decompressed and all stone fragments removed. The patient's bladder was completely decompressed. He was awoken and was taken to recovery in stable condition. We will plan to observe overnight, and if he does well we will plan to discharge tomorrow. cc: Christopher Ya MD MTDD
[2019-11-09] MEDS: KEFZOL 1 GM/D5W 1 GM/50 ML IVPB IV SCH (22:31)
[2019-11-09] MEDS: CALTRATE 600 + D PO SCH (22:31)
[2019-11-09] MEDS: COLACE PO SCH (22:31)
[2019-11-09] MEDS: PERIDEX MT SCH (22:31)
[2019-11-10] MEDS: KEPPRA PO SCH ×2 (01:42→09:29)
[2019-11-10] MEDS: PATIENT'S OWN MED PO SCH ×2 (01:43→09:30)
[2019-11-10] MEDS: SLOW-MAG PO SCH ×2 (01:43→09:29)
[2019-11-10] MEDS: PEPCID PO SCH ×2 (01:44→09:29)
[2019-11-10 04:11] LABS: URINE SOURCE CATH
[2019-11-10 04:15] LABS: BILIRUBIN URINE NEGATIVE (NEGATIVE); BLOOD URINE LARGE (NEGATIVE); COLOR STRAW; GLUCOSE URINE NEGATIVE (NEGATIVE); KETONE URINE NEGATIVE (NEGATIVE); LEUKOCYTES URINE TRACE (NEGATIVE); NITRITE URINE NEGATIVE (NEGATIVE); PROTEIN URINE NEGATIVE (NEGATIVE); SP GRAVITY URINE 1.009; TURBIDITY URINE CLEAR (CLEAR); UROBILINOGEN URINE NORMAL (NORMAL)
[2019-11-10 04:16] LABS: UR EPITHELIAL CELLS <10 /HPF (<10); URINE BACTERIA NEGATIVE /HPF; URINE RBC 20-40 /HPF (<10); URINE WBC <10 /HPF (<10)
[2019-11-10] MEDS: SYNTHROID PO SCH ×2 (05:09→09:31)
[2019-11-10] MEDS: KEFZOL 1 GM/D5W 1 GM/50 ML IVPB IV SCH ×2 (05:10→06:31)
[2019-11-10 07:41] VITALS: BP 144/79
[2019-11-10] MEDS: ALBUTEROL NEB INH SCH (08:19)
--- NOTE | 2019-11-10 08:26 | PROGRESS NOTE ---
DATE: 11/10/2019 SUBJECTIVE: Postoperative day 1 from robotic-assisted laparoscopic right partial nephrectomy for cyst, and cystoscopy, right ureteroscopy, stone basket extraction, and right ureteral stent exchange. Overall, the patient has done well. He had some urine retention yesterday, and had to have a catheter inserted, with over 800cc return. The patient denies any fevers or chills. He feels like his pain is relatively well controlled. He denies any nausea or vomiting, and tolerated p.o. intake yesterday. Catheter drained over 3.5 L overnight of clear yellow urinary output. OBJECTIVE: Vital Signs: Temperature 98.2 degrees, heart rate 80, blood pressure 144/79, oxygen saturation 98% on room air. General: No acute distress. Resting comfortably in bed. Alert and oriented x3. Respiratory: Good respiratory effort without audible wheezing or rales. Abdomen: Soft, nontender, nondistended. : No suprapubic tenderness. Urethral catheter in place, draining clear yellow urine. Skin: Laparoscopic incisions are well healed with evidence of skin glue overlying them. No evidence of drainage or erythema around the incisions. LABORATORY: White blood cell count 12.4, Hemoglobulin 12.6, Hematocrit 38.5, Platelets 239. Sodium 143, Potassium 3.5, Chloride 105, Bicarbonate 25, BUN 14, creatinine 1.5, and glucose of 97. 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 The patient has done well. He did have some urinary retention postoperatively, but is doing better today. Denies any fevers or chills overnight. States the pain is well controlled. The patient has been on home medications. I encouraged him to start his Eliquis tomorrow. He can also shower tomorrow. The patient will be discharged with catheter, and have his catheter and stent removed on Thursday in the office. He will return to clinic in 2 weeks for followup and discussion of pathology. cc: Christopher Ya MD [facility] [place] [facility]
[2019-11-10 08:33] LABS: CALCIUM 8.1 mg/dL (8.8-10.2); CREATININE 1.5 mg/dL (0.7-1.2); POTASSIUM 3.5 mmol/L (3.5-5.1)
[2019-11-10 08:34] LABS: HEMATOCRIT 38.5 % (42.0-52.0); HEMOGLOBIN 12.6 g/dL (14.0-18.0); MCH 32.9 PG (27-31); MCHC 32.7 g/dL (33-37); MCV 100.5 FL (81-99); MPV 10.9 FL (7.4-10.4); RBC 3.83 XMIL (4.7-6.1); RDW 14.9 % (11.5-14.5); WBC 12.41 X1000 (4.8-10.8)
[2019-11-10] MEDS ORDERED: KLOR-CON PO SCH (09:00)
[2019-11-10] MEDS ORDERED: VALTREX PO SCH (09:00)
[2019-11-10] MEDS ORDERED: PATIENT'S OWN MED PO SCH (09:00)
[2019-11-10] MEDS ORDERED: LASIX PO SCH (09:00)
[2019-11-10] MEDS ORDERED: FOLIC ACID PO SCH (09:00)
[2019-11-10] MEDS ORDERED: CORTEF PO SCH (09:00)
[2019-11-10] MEDS: CALTRATE 600 + D PO SCH (09:29)
[2019-11-10] MEDS: COLACE PO SCH (09:29)
[2019-11-10] MEDS: PERIDEX MT SCH (09:31)
[2019-11-11] MEDS ORDERED: ELIQUIS PO SCH (06:00)
== END 2019-11-10 10:56 | disposition home or self-care (01) ==
LOC: 4N 09:55 → OR 09:55
PROVIDERS: ATTEND Urology